=== PATIENT | female | born 1955 | race Caucasian/White ===

== ENCOUNTER → 2017-12-01 | Outpatient (CLI) | payer BC ==
--- NOTE | 2017-12-01 14:05 | MM ---
Reason for exam: screening (asymptomatic). Last mammogram was performed 3 years and 10 months ago. History: Patient is postmenopausal. Benign ultrasound-guided core biopsy of the right breast, November 18, 2000. Core biopsy of the right breast. Took hormonal contraceptives for 12 years. Physical Findings: A clinical breast exam by your physician is recommended on an annual basis and results should be correlated with mammographic findings. MG Screening Mammo w CAD Bilateral CC and MLO view(s) were taken. Prior study comparison: February 05, 2014, bilateral MG screening mammo w CAD. October 26, 2011, bilateral digital screening mammo w/CAD. There are scattered fibroglandular densities. There is no discrete abnormality. ASSESSMENT: Negative, BI-RAD 1 RECOMMENDATION: Routine screening mammogram of both breasts in 1 year.
== END | disposition home or self-care (01) ==
LOC: RADMAMWWP 10:34
PROVIDERS: ATTEND Internal Medicine
DX: Z12.31 Encounter for screening mammogram for malignant neoplasm of breast (principal)
CPT/HCPCS: 77067

== ENCOUNTER → 2018-07-12 | Outpatient (CLI) | payer BC ==
[2018-07-12 13:22] LABS: Basophils # (A) 0.1 k/uL (0-0.2); Basophils % (A) 1 %; Eosinophils # (A) 0.4 k/uL (0-0.7); Eosinophils % (A) 4 %; HCT 45.3 % (34.0-46.0); Lymphocytes # (A) 2.7 k/uL (1.0-4.8); Lymphocytes % (A) 32 %; MCH 30.3 pg (25.0-35.0); MCV 91.9 fL (80.0-100.0); Mean Platelet Volume 7.9; Monocytes # (A) 0.4 k/uL (0-1.0); Monocytes % (A) 5 %; Neutrophils # (A) 4.6 k/uL (1.3-7.7); Neutrophils % (A) 55 %; Platelet Count 381 k/uL (150-450); RBC 4.93 m/uL (3.80-5.40); WBC 8.3 k/uL (3.8-10.6)
[2018-07-12 13:39] LABS: Anion Gap 11 mmol/L; Blood Urea Nitrogen 20 mg/dL (7-17); Carbon Dioxide 23 mmol/L (22-30); Chloride 104 mmol/L (98-107); Glucose 99 mg/dL (74-99); Potassium 4.7 mmol/L (3.5-5.1); Sodium 138 mmol/L (137-145)
== END | disposition home or self-care (01) ==
LOC: LABPAT 12:00
PROVIDERS: ATTEND Obstetrics & Gynecology
DX: Z01.812 Encounter for preprocedural laboratory examination (principal); Z01.818 Encounter for other preprocedural examination; E11.9 Type 2 diabetes mellitus without complications; I10 Essential (primary) hypertension; N81.3 Complete uterovaginal prolapse; N81.6 Rectocele
CPT/HCPCS: 36415; 80051; 82565; 82947; 84520; 85025; 87086; 93005

== ENCOUNTER 2018-07-20 05:36 | Observation (INO) | payer BC ==
[2018-07-12 13:44] VITALS: BMI 32.3
[~2018-07-20 05:36] MED LIST: ceFAZolin IN SWFI 2 GM/20 ML SYRINGE IVP ONE
[2018-07-20] MEDS ORDERED: ONDANSETRON 4 MG/2 ML VIAL IVP ONE ×2 (06:00→12:33)
[2018-07-20] MEDS ORDERED: LIDOCAINE 1% 20 ML VIAL (10MG/ML) FOR IV START INTRADERMA PRN (06:00)
[2018-07-20] MEDS ORDERED: fentaNYL (PF) 50 MCG/ML 2 ML AMP IV PRN (06:00)
[2018-07-20] MEDS ORDERED: MIDAZOLAM 2 MG/2 ML VIAL IV PRN (06:00)
[2018-07-20] MEDS: LACTATED RINGERS 1,000 ML IV SCH ×3 (06:42→22:51)
[2018-07-20 06:45] LABS: Glucose,Whole Blood 131 mg/dL (75-99)
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
[2018-07-20] MEDS: DEXAMETHASONE SOD PHOSPHATE 10 MG/ML 1 ML VIAL IV ONE ×2 (06:55→13:31)
[2018-07-20] MEDS ORDERED: ceFAZolin 1,000 MG VIAL IRRIGATION ONE ×2 (07:49→09:15)
[2018-07-20] MEDS ORDERED: VASOPRESSIN 20 UNIT/ML 1 ML VIAL SQ ONE ×2 (07:50→08:35)
[2018-07-20] MEDS ORDERED: BACITRACIN 500 UNIT/GM OINT 28.4 GM TUBE TOPICAL ONE ×2 (07:52→09:36)
[2018-07-20] MEDS ORDERED: MIDAZOLAM 2 MG/2 ML VIAL ONE (08:07)
[2018-07-20] MEDS ORDERED: fentaNYL (PF) 50 MCG/ML 2 ML AMP ONE (08:07)
[2018-07-20] MEDS ORDERED: MORPHINE SULFATE (PF) 0.3 MG/0.3 ML SYR ONE (08:07)
[2018-07-20] MEDS ORDERED: PROPOFOL 10 MG/ML 20 ML VIAL IV ONE (08:07)
[2018-07-20] MEDS ORDERED: LIDOCAINE 1% INJ 10MG/ML (20 ML MDV) ONE (08:07)
[2018-07-20] MEDS ORDERED: ePHEDrine SULFATE/0.9% NACL/PF 50 MG/5 ML SYRINGE IV ONE (08:07)
[2018-07-20] MEDS ORDERED: LACTATED RINGERS 1,000 ML IV ONE (08:51)
[2018-07-20] MEDS ORDERED: KETOROLAC 30 MG/ML 1 ML VIAL IVP PRN ×2 (08:55→10:48)
[2018-07-20] MEDS ORDERED: NALBUPHINE 10 MG/ML VIAL (10ML MDV) IV PRN (08:55)
[2018-07-20] MEDS ORDERED: diphenhydrAMINE 50 MG/ML 1 ML VIAL IVP PRN (08:55)
[2018-07-20] MEDS ORDERED: NALOXONE 0.4 MG/ML 1 ML VIAL IV PRN (08:55)
[2018-07-20] MEDS ORDERED: HYDROmorphone 1 MG/ML 1 ML SYRINGE IVP PRN (08:55)
--- NOTE | 2018-07-20 10:33 | P.OP ---
Date of Procedure: 07/20/18 Preoperative Diagnosis: Genetic cystocele, rectocele, urinary incontinence. Postoperative Diagnosis: Same, normal-appearing ovaries bilaterally. Procedure(s) Performed: Vaginal hysterectomy, anterior and posterior colporrhaphy's. Anesthesia: LOPEZA Surgeon: Noelle Barajas Forklift Technician #1: Gladys Whitaker Estimated Blood Loss (ml): 100 IV fluids (ml): 1,400 Urine output (ml): 350 Pathology: none sent Condition: stable Disposition: PACU Description of Procedure: Patient is brought to the operating suite where a general anesthetic is administered. Spinal with Duramorph is also given. The appropriate timeout is performed to assure proper patient and procedural identification. Antibiotics are given. Patient is placed in the dorsal lithotomy position, perineal body and lower abdomen are prepped and draped in usual sterile fashion. Weighted speculum was placed into the vagina. Anterior lip of the cervix is grasped with a double-tooth tenaculum. Cervix is injected circumferentially with a dilute Pitressin solution. Bladder is drained for approximately 200 mL of clear yellow urine. Scalpel is used to incise the mucosa circumferentially with a V positioning at 6:00. Scalpel is used to push the mucosa back from the underlying fascial plane. Peritoneum is entered at 6:00 in this is suture tied and held with 2-0 Vicryl. Weighted speculum was then placed into the vagina. At all times the mucosa is swept well from the operative field to avoid bladder and/or ureteral injury. The right uterosacral cardinal ligament is identified, clamped cut and suture ligated. The suture is held with a hemostat laterally. The same procedure is carried out on the opposite uterosacral cardinal ligament complex. Uterine vasculature is identified and skeletonized, it is clamped cut and suture ligated. 2 additional pedicles are taken superior to the vessels. The anterior peritoneum is entered. Moni clamps are used across the final pedicles, the uterus and cervix are removed and sent to pathology. The pedicles are suture tied with 0 Vicryl, flashed, and retied for excellent hemostasis. A sponge is used to Yaz the ovaries, baby are atrophic and are left in situ per the patient's wishes. Hemostasis is excellent. The speculum is then changed to the shallow billed speculum. The previously placed 2-0 Vicryl suture is brought around in a pursestring fashion the peritoneum is closed. The uterosacral cardinal ligaments are then brought across to incorporate the opposite ligament as well as vaginal mucosa. 2 additional [id number] sutures of 0 Vicryl used on the vaginal cough for final closure. Trying regular portion of tissue is removed from the perineal body. The posterior vaginal mucosa is injected with the same dilute Pitressin. The mucosa is opened with a Metzenbaum scissors. The edges of the tissue are held in a fanlike fashion with Allis clamps. A sponge rolled finger is used to separate the underlying fascia from the overlying mucosa. 2-0 Vicryl sutures used in an interrupted fashion to bring the fascial edges together thereby completely reducing the rectocele. The redundant tissue is trimmed with Metzenbaum scissors. 2-0 Vicryl is used in a running fashion to repair the mucosal edges with an episiotomy-like closure at 6:00. Again hemostasis is excellent. Cystocele is then started. Metzenbaum scissors are used in the midline the roof of the vagina to undermine and open the vaginal mucosa to approximate 1.5 cm from the urethra. Sponge rolled finger is used to separate the mucosa from the underlying fascial plane. 2-0 Vicryl sutures are used to bring the fascial edges together. At this time Dr. Arteaga performed his autologous fascia pubovaginal sling procedure. Please see separately dictated notes. Cystoscopy is also performed in this is within normal limits. When he is completed. 2-0 Vicryl sutures used in a running fashion to close the vaginal mucosa. The vagina is packed with one-inch iodophor gauze. Wilson catheter is noted to be draining clear urine. All sponge needle and enhancement counts are correct at the end of our procedure. Patient is brought back to recovery room in very good condition with stable vital signs including a pulse of 75, blood pressure 105/53, respirations 12.
[2018-07-20] MEDS ORDERED: ONDANSETRON 4 MG/2 ML VIAL IVP PRN (10:46)
[2018-07-20] MEDS ORDERED: DEXTROSE 5%-0.45% NACL 1,000 ML IV SCH (11:00)
[2018-07-20] MEDS ORDERED: ceFAZolin 1,000 MG in DEXTROSE/WATER 1 50ML.BAG IVPB STA (11:03)
[2018-07-20 11:19] LABS: Glucose,Whole Blood 164 mg/dL (75-99)
[2018-07-20] MEDS ORDERED: ALBUTEROL NEBULIZED 2.5 MG/3 ML INHALATION PRN (13:05)
--- NOTE | 2018-07-20 14:18 | P.OP ---
Date of Procedure: 07/20/18 Preoperative Diagnosis: Mixed Urinary Incontinence Postoperative Diagnosis: Same Procedure(s) Performed: Pubovaginal Sling Anesthesia: spinal Surgeon: Andrea Campos Roll Builder #1: Noelle Barajas Estimated Blood Loss (ml): 100 IV fluids (ml): 1,400 Pathology: none sent Condition: stable Disposition: PACU Indications for Procedure: The patient is a 62-year-old white female with a several year history of mixed urinary incontinence, which requires the use of 4-5 pads daily. She states that she coughs hardly at times, resulting in significant stress urinary incontinence. She underwent urodynamic testing, revealing normal bladder capacity with no uninhibited contractions. Stress incontinence was demonstrated with Valsalva, and the leak point pressure was approximately 100 cm water. Mild urethral hypermobility was noted, all of which was consistent with the stress component of the incontinence being classified as type 2-3. Alternative treatment options were reviewed. She was advised that her best treatment option consisted of surgery. Surgical approaches include a retropubic urethropexy or a sling, either using autologous fascia or a synthetic sling. The pros and cons of each approach were reviewed, and she has elected to undergo a pubovaginal sling with autologous fascia. Operative Findings: No anatomic abnormalities noted, other than evidence of pelvic prolapse. Description of Procedure: I entered the operating room as Dr. Barajas completed the vaginal hysterectomy and rectocele repair. The patient was positioned in the dorsolithotomy position. Her condition was stable. The abdomen had been previously prepped and draped. The scalpel was used to make a Pfannenstiel incision. The Bovie electrocautery was used to incise the subcutaneous fat and Gómez's fascia, exposing the anterior rectus fascia. After clearing the fat off of the fascia, an 8 x 2 cm strip of fascia was excised. A Prolene suture was placed through each end of the fascia. The fascial defect was then closed using 0 Vicryl suture in a running fashion. Through the anterior vaginal incision, the endopelvic fascia was perforated bilaterally, and the bladder was swept away from the underside of the pubis via digital dissection. Stamey needles were then passed through the lateral aspect of the Pfannenstiel incision. The needles were advanced through the fascia immediately above the pubis, and the needle tips were guided digitally through the space of Retzius, down through the vaginal incision. The ends of the Prolene suture were then passed through the eyelet of the Stamey needles, thus pulling the suture ends to the Pfannenstiel incision. The mid-portion of the graft was secured to the periurethral tissue using 3-0 Vicryl suture. The ends of the Prolene sutures were then tied over the anterior rectus fascia, without tension. Cystoscopy was performed. The 30 lens was used to introduce the 17-[place] start cystoscopic sheath through the urethra and into the bladder under direct vision. Both ureteral orifices were of normal anatomic location and configuration, and clear urine effluxed from both. No tumors or foreign bodies were seen. There was no evidence of bladder or urethral trauma. Dr. Barajas proceeded to complete the cystocele repair and placed vaginal packing. The Pfannenstiel incision was irrigated with antibiotic solution. Gómez's fascia was closed over the Prolene suture ends using 3-0 Vicryl suture in a running fashion. The skin was closed using lilia. A sterile gauze dressing was applied over the incision. The Wilson catheter was connected to gravity drainage. All sponge and needle counts were correct. The patient tolerated the procedure well was taken to the recovery room in stable condition.
[2018-07-20] MEDS ORDERED: ceFAZolin 1,000 MG in DEXTROSE/WATER 1 50ML.BAG IVPB ONE (16:00)
[2018-07-20 18:26] LABS: Glucose,Whole Blood 127 mg/dL (75-99)
[2018-07-20] MEDS ORDERED: MECLIZINE 25 MG TAB PO PRN (18:46)
[2018-07-20 20:57] LABS: Glucose,Whole Blood 127 mg/dL (75-99)
[2018-07-20] MEDS ORDERED: metFORMIN 500 MG TAB PO SCH (21:00)
[2018-07-20] MEDS ORDERED: ATORVASTATIN 10 MG TAB PO SCH (21:00)
[2018-07-21 07:35] LABS: Glucose,Whole Blood 124 mg/dL (75-99)
[2018-07-21] MEDS ORDERED: LOSARTAN 50 MG TAB PO SCH (09:00)
[2018-07-21] MEDS ORDERED: FAMOTIDINE 20 MG TAB PO SCH (09:00)
--- NOTE | 2018-07-21 10:32 | P.DS ---
Providers Date of admission: 07/20/18 21:53 Expected date of discharge: 07/21/18 Attending physician: Noelle Barajas Primary care physician: [facility] Course: This is a 62-year-old white female who presented with a history of urinary incontinence and increasing perineal bulge. Evaluation in the office was consistent with uterine mixed urinary incontinence, cystocele, rectocele and uterine prolapse. After thorough consultation patient elected to proceed with surgical repair, declining option of pessary. Patient saw Dr. Arteaga for evaluation, and has decision was to proceed with an SNOW is grasped retropubic urethropexy. Please see both dictated history and physical examinations for details. Patient underwent a vaginal hysterectomy, anterior repair, posterior repair, autologous graft retropubic urethropexy and cystoscopy. She did well intraoperatively. The ovaries were evaluated, noted to be normal and therefore left in situ per her wishes. The vagina was packed with iodoform gauze and Wilson catheter placed. Please see to separately dictated operative notes for details. This morning the patient is doing well. Wilson catheter and vaginal packing had been removed. There is only scant vaginal bleeding. Patient has yet to void, but has increased her oral fluids. She is tolerating regular diet. She has showered. Vital signs are stable and she has remained afebrile. She is judged to be in very good condition for discharge home, pending successful void and measurement of postvoid residual. I am therefore discharging the patient home later today. She will follow-up in the office with me in 2 weeks, with Dr. Arteaga in 1 week. I have reminded her no heavy lifting, no intercourse tampons or douching. She will use over-the -counter Advil or Aleve as needed for pain. I've asked her to call me with any fevers shakes or chills, foul smelling or bloody vaginal drainage, with any pain not alleviated by [id number] products with any issues voiding, or indeed with any concerns whatsoever. Questions have been answered and I believe she understands our discussion and her limitations at this time. She will call with any problems or concerns. Pathology report on the uterine specimen at this time is pending. Patient Condition at Discharge: Good Plan - Discharge Summary Discharge Rx Participant: No New Discharge Prescriptions: No Action Tolterodine Tartrate [Detrol LA] 4 mg PO HS Ranitidine HCl 300 mg PO QAM Losartan Potassium 50 mg PO QAM Zinc 50 mg PO BID Calcium 600 + Vit D3 800 1 tab PO HS Albuterol Sulfate [Proair Hfa] 1 - 2 puff INHALATION RT-QID PRN PRN Reason: Shortness Of Breath Multivitamin with Iron [Multivitamins with Iron] 1 tab PO DAILY metFORMIN HCL [metFORMIN HCL ER] 500 mg PO HS Ubidecarenone [Co Q-10] 100 mg PO DAILY rOPINIRole HCL 1 mg PO HS Lovastatin [Mevacor] 10 mg PO HS Discharge Medication List Albuterol Sulfate [Proair Hfa] 1 - 2 puff INHALATION RT-QID PRN 07/12/18 [ History] Calcium 600 + Vit D3 800 1 tab PO HS 07/12/18 [History] Losartan Potassium 50 mg PO QAM 07/12/18 [History] Lovastatin [Mevacor] 10 mg PO HS 07/12/18 [History] Multivitamin with Iron [Multivitamins with Iron] 1 tab PO DAILY 07/12/18 [ History] Ranitidine HCl 300 mg PO QAM 07/12/18 [History] Tolterodine Tartrate [Detrol LA] 4 mg PO HS 07/12/18 [History] Ubidecarenone [Co Q-10] 100 mg PO DAILY 07/12/18 [History] Zinc 50 mg PO BID 07/12/18 [History] metFORMIN HCL [metFORMIN HCL ER] 500 mg PO HS 07/12/18 [History] rOPINIRole HCL 1 mg PO HS 07/12/18 [History] Follow up Appointment(s)/Referral(s): Noelle Barajas MD [STAFF PHYSICIAN] - 2 Weeks Discharge Disposition: HOME SELF-CARE
--- NOTE | 2018-07-21 11:21 | P.PN ---
Progress Note - Text Progress Note Date: 07/21/18 Postoperative day 1 status post vaginal hysterectomy , under general endotracheal anesthesia, and intrathecal morphine given for postoperative analgesia, patient doing well, there is no anesthesia related complications, Patient had no headache, vital signs stable , Assessment and plan= postop day 1 , doing well there is no anesthesia related complication.
[2018-07-21 12:06] VITALS: RESP 16
[2018-07-21 12:15] LABS: Glucose,Whole Blood 133 mg/dL (75-99)
[2018-07-21] MEDS ORDERED: IBUPROFEN 800 MG TAB PO PRN (14:37)
[2018-07-21 16:20] VITALS: BP 116/71; PULSE 62; TEMP 97.8
--- NOTE | 2018-07-21 16:54 | P.PN ---
Subjective Progress Note Date: 07/21/18 Principal diagnosis: POD #1, s/p pubovaginal sling. The patient was seen this morning shortly after her Wilson catheter was removed. She was feeling well and had virtually no discomfort. She had no complaints. Objective - Vital Signs Vital signs: Vital Signs Temp 97.8 F 07/21/18 15:47 Pulse 62 07/21/18 15:47 Resp 16 07/21/18 15:47 BP 116/71 07/21/18 15:47 Pulse Ox 99 07/21/18 15:47 Intake & Output 07/20/18 07/21/18 07/21/18 18:59 06:59 18:59 Intake Total 1750 1000 Output Total 650 650 650 Balance 1100 -650 350 Weight 89.358 kg Intake: IV 1750 Intake, IV Titration 400 Amount Lactated Ringers 1,000 ml 400 @ 100 mls/hr IV .Q10H JADON Rx#:[id number] Oral 600 Output: Urine 550 650 650 Straight 650 Estimated Blood Loss 100 Other: Voiding Method Indwelling Catheter Toilet - Constitutional General appearance: Present: cooperative, no acute distress - Gastrointestinal Gastrointestinal Comment(s): Soft, non-distended. Incision clean, dry, and intact. - Psychiatric Psychiatric: Present: A&O x's 3, appropriate affect - Labs Labs: Abnormal Lab Results - Last 24 Hours (Table) 07/20/18 07/20/18 07/21/18 Range/Units 18:23 20:54 07:34 POC Glucose (mg/dL) 127 H 127 H 124 H (75-99) mg/dL 07/21/18 Range/Units 12:14 POC Glucose (mg/dL) 133 H (75-99) mg/dL Assessment and Plan (1) Mixed urinary incontinence due to female genital prolapse Current Visit: No Status: Acute Code(s): N39.46 - MIXED INCONTINENCE; N81.9 - FEMALE GENITAL PROLAPSE, UNSPECIFIED SNOMED Code(s): 885177478 Plan: Mrs. Felder is unable to void, and was straight catheterized with a return of approximately 600 mL. If she continues to be unable to void, she will be taught to self catheterize. If she is unable to do so, she will be discharged home with an indwelling Wilson catheter. She has been advised that if she has retention which fails to resolve, loosening of the sling will be required.
[2018-07-21 17:28] LABS: Glucose,Whole Blood 154 mg/dL (75-99)
== END 2018-07-21 20:15 | disposition home or self-care (01) ==
LOC: OR 05:36 → 6PED 11:02 → OR 22:08
PROVIDERS: ADMIT Obstetrics & Gynecology; ATTEND Obstetrics & Gynecology
DX: N81.4 Uterovaginal prolapse, unspecified (principal); N39.46 Mixed incontinence; N36.41 Hypermobility of urethra; N80.0 Endometriosis of uterus; N84.0 Polyp of corpus uteri; K21.9 Gastro-esophageal reflux disease without esophagitis; J45.909 Unspecified asthma, uncomplicated; I10 Essential (primary) hypertension; E78.5 Hyperlipidemia, unspecified; E11.9 Type 2 diabetes mellitus without complications; Z79.84 Long term (current) use of oral hypoglycemic drugs; Z79.899 Other long term (current) drug therapy; Z88.5 Allergy status to narcotic agent; Z82.0 Family history of epilepsy and other diseases of the nervous system; Z80.42 Family history of malignant neoplasm of prostate
CPT/HCPCS: 57288; 57260; 58260; 86900; 86901; 86850; 88307; G0378 ×2; J2250; J1200; J1100; J2405; J0690 ×2; J2001; J2274; J3010; J1885; J2704

== ENCOUNTER 2018-07-28 10:02 | Day surgery (SDC) | payer BC ==
[2018-07-26 11:59] VITALS: BMI 32.3
[2018-07-28] MEDS ORDERED: LACTATED RINGERS 1,000 ML IV ONE ×3 (10:32→11:58)
[2018-07-28] MEDS ORDERED: LIDOCAINE 1% 20 ML VIAL (10MG/ML) FOR IV START INTRADERMA ONE (10:32)
[2018-07-28 10:49] LABS: Glucose,Whole Blood 114 mg/dL (75-99)
[2018-07-28] MEDS ORDERED: DEXAMETHASONE SOD PHOSPHATE 10 MG/ML 1 ML VIAL IV ONE (11:00)
[2018-07-28] MEDS ORDERED: ONDANSETRON 4 MG/2 ML VIAL IVP ONE (11:01)
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
[2018-07-28] MEDS ORDERED: KETAMINE 10 MG/ML 20 ML VIAL ONE (13:40)
[2018-07-28] MEDS ORDERED: fentaNYL (PF) 50 MCG/ML 2 ML AMP ONE (13:40)
[2018-07-28] MEDS ORDERED: PROPOFOL 10 MG/ML 20 ML VIAL IV ONE (13:40)
[2018-07-28] MEDS ORDERED: MIDAZOLAM 2 MG/2 ML VIAL ONE (13:40)
[2018-07-28] MEDS ORDERED: LIDOCAINE 1% INJ 10MG/ML (20 ML MDV) ONE (13:40)
[2018-07-28] MEDS ORDERED: BUPIVACAINE (PF) 0.25% 30 ML VIAL SQ ONE ×2 (13:56)
[2018-07-28 14:44] VITALS: TEMP 99.2
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
[2018-07-28 15:11] VITALS: RESP 16
[2018-07-28 15:36] VITALS: BP 132/74; PULSE 66
== END 2018-07-28 15:51 | disposition home or self-care (01) ==
LOC: OR 10:02
PROVIDERS: ATTEND Urology
DX: T83.89XA Other specified complication of genitourinary prosthetic devices, implants and grafts, initial encounter (principal); R33.8 Other retention of urine; J45.909 Unspecified asthma, uncomplicated; E11.9 Type 2 diabetes mellitus without complications; K21.9 Gastro-esophageal reflux disease without esophagitis; E78.5 Hyperlipidemia, unspecified; I10 Essential (primary) hypertension; N81.4 Uterovaginal prolapse, unspecified; Z79.84 Long term (current) use of oral hypoglycemic drugs; Z79.899 Other long term (current) drug therapy; Z88.5 Allergy status to narcotic agent
CPT/HCPCS: 57287; J2250; J1100; J2405; J2001; J3010; J2704; J0690

== ENCOUNTER 2018-08-09 09:36 | Day surgery (SDC) | payer BC ==
[2018-08-07 10:50] VITALS: BMI 32.8
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
[~2018-08-09 09:36] MED LIST changes: +DEXAMETHASONE SOD PHOSPHATE 10 MG/ML 1 ML VIAL IV ONE; +HYDROmorphone 0.5 MG/0.5 ML SYRINGE IVP PRN; +LIDOCAINE 1% 20 ML VIAL (10MG/ML) FOR IV START INTRADERMA PRN; +MIDAZOLAM 2 MG/2 ML VIAL IV PRN; +ONDANSETRON 4 MG/2 ML VIAL IVP ONE; +SCOPOLAMINE 1.5MG/72HR PATCH TRANSDERM ONE
[2018-08-09] MEDS ORDERED: HYDROmorphone 1 MG/ML 1 ML SYRINGE IVP PRN (10:54)
[2018-08-09 11:31] LABS: Glucose,Whole Blood 122 mg/dL (75-99)
[2018-08-09] MEDS: LACTATED RINGERS 1,000 ML IV SCH ×2 (11:37→13:27)
[2018-08-09 11:41] VITALS: TEMP 98.6
[2018-08-09] MEDS ORDERED: PHENYLEPHRINE-0.9% NACL SYG 1 MG/10 ML SYRINGE ONE (13:29)
[2018-08-09] MEDS ORDERED: LIDOCAINE 1% INJ 10MG/ML (20 ML MDV) ONE (13:29)
[2018-08-09] MEDS ORDERED: SUCCINYLCHOLINE CHLORIDE 100 MG/5 ML SYR IV ONE (13:29)
[2018-08-09] MEDS ORDERED: HYDROmorphone (PF) 1 MG/ML ONE (13:29)
[2018-08-09] MEDS ORDERED: ePHEDrine SULFATE/0.9% NACL/PF 50 MG/5 ML SYRINGE IV ONE (13:29)
[2018-08-09] MEDS ORDERED: MIDAZOLAM 2 MG/2 ML VIAL ONE (13:29)
[2018-08-09] MEDS ORDERED: fentaNYL (PF) 50 MCG/ML 2 ML AMP ONE (13:29)
[2018-08-09] MEDS ORDERED: PROPOFOL 10 MG/ML 20 ML VIAL IV ONE (13:29)
[2018-08-09] MEDS ORDERED: ceFAZolin 1,000 MG in SODIUM CHLORIDE 0.9% 1,000 ML IRRIGATION ONE (14:37)
[2018-08-09] MEDS ORDERED: LACTATED RINGERS 1,000 ML IV ONE (15:00)
[2018-08-09 16:02] VITALS: RESP 16
[2018-08-09 16:02] LABS: Glucose,Whole Blood 157 mg/dL (75-99)
[2018-08-09 17:56] VITALS: BP 107/63; PULSE 83
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
== END 2018-08-09 18:48 | disposition home or self-care (01) ==
LOC: OR 09:36
PROVIDERS: ATTEND Urology
DX: N36.41 Hypermobility of urethra (principal); R33.9 Retention of urine, unspecified; J45.909 Unspecified asthma, uncomplicated; E11.9 Type 2 diabetes mellitus without complications; K21.9 Gastro-esophageal reflux disease without esophagitis; E78.5 Hyperlipidemia, unspecified; I10 Essential (primary) hypertension; Z79.84 Long term (current) use of oral hypoglycemic drugs; Z79.899 Other long term (current) drug therapy; Z88.5 Allergy status to narcotic agent
CPT/HCPCS: 87070; 87205; 87075; 87077; 87186; 57287; J2250; J1100; J2405; J0690 ×2; J2001; J3010; J1170; J2370; J0330; J2704

== ENCOUNTER 2018-08-12 12:25 | Emergency (ER) | payer BC ==
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
[2018-08-12 16:02] VITALS: BP 158/70; PULSE 78; RESP 16; TEMP 97.8
== END 2018-08-12 15:45 | disposition home or self-care (01) ==
LOC: EC 12:25
DX: R32 Unspecified urinary incontinence (principal); R33.9 Retention of urine, unspecified; J45.909 Unspecified asthma, uncomplicated; E11.9 Type 2 diabetes mellitus without complications; K21.9 Gastro-esophageal reflux disease without esophagitis; E78.5 Hyperlipidemia, unspecified; I10 Essential (primary) hypertension; Z86.14 Personal history of Methicillin resistant Staphylococcus aureus infection; Z90.710 Acquired absence of both cervix and uterus; Z90.81 Acquired absence of spleen; Z96.652 Presence of left artificial knee joint; Z98.890 Other specified postprocedural states; Z79.84 Long term (current) use of oral hypoglycemic drugs; Z79.899 Other long term (current) drug therapy; Z88.5 Allergy status to narcotic agent
CPT/HCPCS: 99283

== ENCOUNTER 2018-12-26 17:22 | Inpatient (IN) | payer MEDICARE, BC ==
[2018-12-26] MEDS ORDERED: SODIUM CHLORIDE 0.9% 1,000 ML IV ONE (17:39)
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
[2018-12-26 18:00] LABS: Basophils # (A) 0.1 k/uL (0-0.2); Basophils % (A) 0 %; Eosinophils # (A) 0.2 k/uL (0-0.7); Eosinophils % (A) 1 %; HGB 15.1 gm/dL (11.4-16.0); Lymphocytes # (A) 1.5 k/uL (1.0-4.8); Lymphocytes % (A) 5 %; MCH 29.3 pg (25.0-35.0); MCHC 33.5 g/dL (31.0-37.0); MCV 87.6 fL (80.0-100.0); Mean Platelet Volume 7.1; Monocytes # (A) 1.2 k/uL (0-1.0); Monocytes % (A) 4 %; Neutrophils % (A) 90 %; Platelet Count 415 k/uL (150-450); RBC 5.14 m/uL (3.80-5.40); RDW 14.2 % (11.5-15.5); WBC 31.2 k/uL (3.8-10.6)
[2018-12-26 18:04] LABS: Appearance,Urine Cloudy (Clear); Bilirubin,Urine Negative (Negative); Blood,Urine Small (Negative); Color,Urine Yellow; Glucose,Urine (UA) 3+ (Negative); Ketones,Urine 1+ (Negative); Leukocyte Esterase,Urine Trace (Negative); Mucus,Urine Many /hpf; Nitrite,Urine Negative (Negative); PH, Urine 6.5 (5.0-8.0); Protein,Urine 2+ (Negative); RBC,Urine 21 /hpf (0-5); Specific Gravity,Urine 1.023 (1.001-1.035); Squamous Epithelial Cell,Urine 3 /hpf (0-4); Urobilinogen,Urine <2.0 mg/dL (<2.0); WBC,Urine 14 /hpf (0-5)
[2018-12-26 18:05] LABS: ALT 27 U/L (9-52); AST 43 U/L (14-36); Albumin 4.2 g/dL (3.5-5.0); Alkaline Phosphatase 172 U/L (38-126); Anion Gap 13 mmol/L; Blood Urea Nitrogen 20 mg/dL (7-17); Calcium 9.9 mg/dL (8.4-10.2); Carbon Dioxide 22 mmol/L (22-30); Chloride 100 mmol/L (98-107); Creatine Kinase 102 U/L (30-135); Glucose 155 mg/dL (74-99); Potassium 4.1 mmol/L (3.5-5.1); Sodium 135 mmol/L (137-145); Total Bilirubin 1.1 mg/dL (0.2-1.3); Total Protein 7.4 g/dL (6.3-8.2)
[2018-12-26 18:09] LABS: Partial Thromboplastin Time 29.4 sec (22.0-30.0); Prothrombin Time 10.8 sec (9.0-12.0)
[2018-12-26] MEDS ORDERED: SODIUM CHLORIDE 0.9% 1,000 ML IV STA (18:37)
--- NOTE | 2018-12-26 19:25 | CT ---
EXAMINATION: CT brain wo con DATE AND TIME: 12/26/2018 6:45 PM CLINICAL INDICATION: PHH; altered mental status TECHNIQUE: Standard departmental protocol.; 1172.4; COMPARISON: None. FINDINGS: The calvarium is intact. There is no intracranial hemorrhage. There is no intracranial mass or mass effect. No definite new intra-axial or extra-axial attenuation defect. All paranasal sinuses are nearly entirely opacified, which can correlate with the clinical diagnosis of pansinusitis. There is no associated paranasal sinus expansion or sclerosis. The right middle ear cavity is clear. There is minimal opacification within the left middle ear cavit y, a nonspecific finding. The mastoid sinus air cells are bilaterally clear. The orbits are unremarkable. IMPRESSION: 1. NO ACUTE CRANIAL/INTRACRANIAL PROCESS. 2. However, near-complete opacification of the paranasal sinuses. 3. Minimal opacification of the left middle ear cavity, of doubtful clinical significance.
--- NOTE | 2018-12-26 19:51 | XR ---
EXAMINATION: XR chest 2V DATE AND TIME: 12/26/2018 7:19 PM CLINICAL INDICATION: PHH; altered mental status TECHNIQUE: Departmental protocol COMPARISON: 11/30/2012 FINDINGS: The overlying prominent soft tissues are noted. Bilateral elevated hemidiaphragms, greater on the right, consistent with low lung inflation at the mo ment of x-ray exposure. There is evidence of a small pleural effusion on the right. There is evident bibasilar partial airlessness of the lower lobes. Basilar pneumonia cannot be clinic ally excluded. There are no abnormal gas collections. The cardiac silhouette is moderately enlarged, new since the prior study. The thoracic aorta is tortuous. This also appears new since the prior study. The skeletal structures and soft tissues are negative for acute findings. IMPRESSION: 1. Bibasilar partial airlessness with small right pleural effusion. 2. Cardiac silhouette moderately enlarged; tortuous aorta.
[2018-12-26] MEDS ORDERED: ONDANSETRON 4 MG/2 ML VIAL IVP STA (20:13)
[2018-12-26] MEDS ORDERED: MORPHINE SULFATE 4 MG/ML SYRINGE IV STA (20:13)
[2018-12-26 21:48] LABS: Total Protein,CSF 517 mg/dL (12-60)
[2018-12-26 21:50] LABS: CSF Tube Number 4
[2018-12-26 21:51] LABS: Appearance,CSF Cloudy; CSF Tube Volume 1
[2018-12-26 21:52] LABS: Nucleated Cells, CSF 2830 u/L (0-5); Red Blood Cell,CSF 500 u/L (0-10)
[2018-12-26 22:00] LABS: Red Blood Cell, CSF Crenated 0 %; Red Blood Cell, CSF Fresh 100 %
[2018-12-26] MEDS ORDERED: AMPICILLIN 2,000 MG in SODIUM CHLORIDE 0.9% 100 ML IVPB STA (22:09)
[2018-12-26] MEDS ORDERED: VANCOMYCIN IV PER PHARMACY 1 EACH MISC MISCELLANE PRN (22:09)
[2018-12-26] MEDS ORDERED: VANCOMYCIN 1,500 MG in SODIUM CHLORIDE 0.9% 250 ML IVPB STA (22:11)
[2018-12-26 22:12] LABS: Mononuclear WBC,CSF 8 %; Polynuclear WBC,CSF 92 %
[2018-12-26 22:14] LABS: Glucose,CSF 27 mg/dL (40-70)
[2018-12-26] MEDS ORDERED: MORPHINE SULFATE 4 MG/ML SYRINGE IV PRN (22:17)
[2018-12-26] MEDS ORDERED: ONDANSETRON 4 MG/2 ML VIAL IVP PRN (22:17)
[2018-12-26] MEDS ORDERED: NALOXONE 0.4 MG/ML 1 ML VIAL IV PRN (22:17)
[2018-12-26] MEDS: SODIUM CHLORIDE 0.9% 1,000 ML IV SCH (23:21)
[2018-12-26 23:49] VITALS: BMI 28.2
[2018-12-27] MEDS: AMPICILLIN 2,000 MG in SODIUM CHLORIDE 0.9% 100 ML IVPB SCH ×3 (02:07→10:04)
[2018-12-27 02:28] LABS: ABG Base Excess 1.4 mmol/L; ABG HCO3 25 mmol/L (21-25); ABG PCO2 34 mmHg (35-45); ABG PH 7.48 (7.35-7.45); ABG PO2 52 mmHg (83-108); ABG TCO2 26 mmol/L (19-24)
[2018-12-27] MEDS ORDERED: ACETAMINOPHEN SUPPOSITORY 650 MG SUPP RECTAL PRN (02:33)
[2018-12-27 04:24] LABS: Glucose,Whole Blood 153 mg/dL (75-99)
[2018-12-27 04:36] LABS: ABG Base Excess 0.9 mmol/L; ABG HCO3 25 mmol/L (21-25); ABG PCO2 36 mmHg (35-45); ABG PH 7.45 (7.35-7.45); ABG PO2 58 mmHg (83-108); ABG TCO2 26 mmol/L (19-24)
[2018-12-27] MEDS ORDERED: NALOXONE 0.4 MG/ML 1 ML VIAL IV PRN (04:58)
[2018-12-27] MEDS ORDERED: PROPOFOL 1,000 MG in EMPTY BAG 1 BAG IV SCH (05:15)
[2018-12-27 05:24] LABS: Anion Gap 10 mmol/L; Blood Urea Nitrogen 18 mg/dL (7-17); Calcium 9.5 mg/dL (8.4-10.2); Carbon Dioxide 24 mmol/L (22-30); Chloride 103 mmol/L (98-107); Glucose 154 mg/dL (74-99); Phosphorus 2.3 mg/dL (2.5-4.5); Sodium 137 mmol/L (137-145)
[2018-12-27 05:33] LABS: Potassium 3.6 mmol/L (3.5-5.1)
[2018-12-27 05:34] LABS: Basophils % (A) 0 %; Eosinophils % (A) 0 %; HGB 14.2 gm/dL (11.4-16.0); Lymphocytes # (A) 1.3 k/uL (1.0-4.8); Lymphocytes % (A) 5 %; MCH 29.3 pg (25.0-35.0); MCV 88.6 fL (80.0-100.0); Mean Platelet Volume 7.7; Monocytes # (A) 1.3 k/uL (0-1.0); Monocytes % (A) 5 %; Neutrophils # (A) 24.3 k/uL (1.3-7.7); Neutrophils % (A) 90 %; Platelet Count 425 k/uL (150-450); RBC 4.86 m/uL (3.80-5.40); RDW 14.3 % (11.5-15.5); WBC 27.1 k/uL (3.8-10.6)
--- NOTE | 2018-12-27 05:46 | XR ---
EXAM: XR Chest, 1 View CLINICAL HISTORY: ITS.REASON XR Reason: Tube placement TECHNIQUE: Frontal view of the chest. COMPARISON: Chest 12/26/18. FINDINGS: See Impression. IMPRESSION: Interval intubation with endotracheal tube tip located approximately 2. 4 cm above the hector. Interval placement of a transesophageal catheter with tip off the examination. Left pleural parenchymal disease is new with obscuration of the left hemidiaphragm from partial atelectasis, infiltrate or aspiration, depending on the clinical scenario. Again seen is some thickening along the right minor fissure. No pneumothorax.
[2018-12-27 05:57] LABS: ABG HCO3 27 mmol/L (21-25); ABG PCO2 54 mmHg (35-45); ABG PO2 279 mmHg (83-108); ABG TCO2 28 mmol/L (19-24)
[2018-12-27] MEDS ORDERED: VANCOMYCIN 1,500 MG in SODIUM CHLORIDE 0.9% 250 ML IVPB SCH (07:00)
[2018-12-27] MEDS ORDERED: PANTOPRAZOLE 40 MG TABLET PO SCH (07:30)
[2018-12-27] MEDS ORDERED: PROPOFOL 10 MG/ML 20 ML VIAL IV ONE (07:37)
[2018-12-27] MEDS ORDERED: MIDAZOLAM 1 MG/ML 5 ML VIAL ONE (07:37)
[2018-12-27] MEDS ORDERED: ROCURONIUM BROMIDE 10 MG/ML 10 ML VIAL IV ONE (07:37)
[2018-12-27] MEDS ORDERED: FLUTICASONE 110 MCG INHALER INHALATION SCH (08:00)
[2018-12-27] MEDS ORDERED: HEPARIN SODIUM,PORCINE 5,000 UNIT/ML 1 ML VIAL SQ SCH (08:00)
[2018-12-27] MEDS ORDERED: CISATRACURIUM 2 MG/ML 5 ML VIAL IV ONE (08:05)
[2018-12-27] MEDS: SODIUM CHLORIDE 0.9% 1,000 ML IV SCH (08:19)
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
[2018-12-27 08:39] LABS: ABG Base Excess -0.2 mmol/L; ABG HCO3 25 mmol/L (21-25); ABG Oxygen Saturation 98.1 % (94-97); ABG PCO2 44 mmHg (35-45); ABG PH 7.37 (7.35-7.45); ABG PO2 114 mmHg (83-108)
[2018-12-27] MEDS: IPRATROPIUM-ALBUTEROL 3 ML NEB INHALATION SCH ×2 (08:58→10:55)
[2018-12-27] MEDS ORDERED: LOSARTAN 50 MG TAB PO SCH (09:00)
[2018-12-27] MEDS ORDERED: metFORMIN 500 MG TAB PO SCH (09:00)
[2018-12-27] MEDS ORDERED: CHLORHEXIDINE GLUCONATE 15 ML CUP MUCOUS MEM SCH (09:00)
--- NOTE | 2018-12-27 09:30 | XR ---
EXAMINATION TYPE: XR chest 1V DATE OF EXAM: 12/27/2018 COMPARISON: 12/27/2018 INDICATION: Central line placement TECHNIQUE: Single semiupright frontal view of the chest is obtained. FINDINGS: The heart size is normal. The pulmonary vasculature is normal. Mild retrocardiac infiltrate may be present. The endotracheal tube tip remains above the hector. Nasogastric tube transverses the thorax tip withi n the abdomen the [id number]. There is placement of a left central venous catheter with the tip in the proximal right atrium. No pn eumothorax is evident. IMPRESSION: 1. No pneumothorax post left central venous catheter placement. Tip the catheter is within the right atrium.
[2018-12-27] MEDS ORDERED: PANTOPRAZOLE 40 MG/10 ML VIAL IVP SCH (09:45)
--- NOTE | 2018-12-27 09:47 | OP ---
OPERATIVE REPORT PROCEDURE: Left internal jugular triple lumen catheter. There was informed consent and universal timeout. The patient was placed in a dependent position appropriate for triple lumen catheter placement based on the vein to be cannulated. The patient's left neck was prepped and draped in sterile fashion. 1% Lidocaine was used to anesthetize the surrounding skin area. A triple lumen 9F Cordis catheter was introduced into the left internal jugular via the posterior approach. The catheter was threaded smoothly over the guide wire and appropriate blood return was obtained. Each lumen of the catheter was evacuated of air and flushed with sterile saline. Perfusion to the extremity distal to the point of catheter insertion was checked and found to be adequate. There was no immediate complication. There was good blood return from all 3 ports. The catheter was sutured in place. Sterile dressing was applied by the nurse. A chest x-ray will be ordered to check placement and rule out pneumothorax. Patient tolerated the procedure well. MMODL / IJN: [id number] /
[2018-12-27 10:06] LABS: Glucose,Whole Blood 131 mg/dL (75-99)
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
[2018-12-27] MEDS ORDERED: Potassium Replacement Protocol 1 EACH MISC MISCELLANE PRN (10:19)
--- NOTE | 2018-12-27 10:33 | ECHOF ---
Referral Reason:elevated trop MEASUREMENTS -------- HEIGHT: 165.1 cm WEIGHT: 74.8 kg BP: RVIDd: 3.5 cm (< 3.3) IVSd: 1.4 cm (0.6 - 1.1) LVIDd: 3.7 cm (3.9 - 5.3) LVPWd: 1.4 cm (0.6 - 1.1) IVSs: 1.5 cm LVIDs: 4.0 cm LVPWs: 1.1 cm LA Diam: 2.5 cm (2.7 - 3.8) MV EXCURSION: 11.339 mm (> 18.000) MV EF SLOPE: 51 mm/s (70 - 150) EPSS: 0.7 cm MV E Natan: 0.49 m/s MV DecT: 218 ms MV A Antan: 0.65 m/s MV E/A Ratio: 0.74 RAP: 5.00 mmHg RVSP: 14.52 mmHg FINDINGS -------- Sinus rhythm. This was a technically adequate study. The left ventricular size is normal. There is moderate concentric left ventricular hypertrophy. O verall left ventricular systolic function is normal with, an EF between 55 - 60 %. The right ventricle is normal in size. The left atrial size is normal. The right atrial size is normal. Not well seen. The aortic valve was not well visualized. Mild mitral annular calcification present. Mild mitral regurgitation is present. Mild tricuspid regurgitation present. There is no evidence of pulmonary hypertension. The right v entricular systolic pressure, as measured by Doppler, is 14.52mmHg. There is no pulmonic regurgitation present. The aortic root size is normal. IVC Not well visulized. There is no pericardial effusion. CONCLUSIONS -------- 1. The left ventricular size is normal. 2. There is moderate concentric left ventricular hypertrophy. 3. Overall left ventricular systolic function is normal with, an EF between 55 - 60 %. 4. The right ventricle is normal in size. 5. The left atrial size is normal. 6. The right atrial size is normal. 7. Interatrial Septum not well visulized. 8. The aortic valve was not well visualized. 9. Mild mitral annular calcification present. 10. Mild mitral regurgitation is present. 11. Mild tricuspid regurgitation present. 12. There is no evidence of pulmonary hypertension. 13. The right ventricular systolic pressure, as measured by Doppler, is 14.52mmHg. 14. There is no pulmonic regurgitation present. 15. The aortic root size is normal. 16. IVC Not well visulized. 17. There is no pericardial effusion. HEAD OF ADVERTISING: Brianna Lo RDCS
[2018-12-27] MEDS: POTASSIUM CHLORIDE 10 MEQ in WATER FOR INJECTION 1 100ML.BAG IVPB SCH ×2 (10:54→12:08)
--- NOTE | 2018-12-27 11:02 | HP ---
HISTORY AND PHYSICAL DATE OF ADMISSION: 12/26/2018 DATE OF SERVICE: 12/27/2018 PRESENTING COMPLAINT: Confusion. HISTORY OF PRESENTING COMPLAINT: This is a 63-year-old patient of Dr. Dario Andujar whose chronic stable medical conditions include diabetes, GERD, hyperlipidemia, hypertension, bladder incontinence. History is obtained by the son and daughter. Two days ago patient was having what appeared to be ear infection on the left side and she had gone to see her family doctor, Dr. Dario Andujar's office. She was given antibiotic in form of Augmentin. That evening the son tried to reach her, but did not get the response. He again called her the next day that is yesterday did not get response, the family decided to go in the house. Patient was found on the bed. She had vomited and urine and had some bruising, slightly confused, able to communicate. The patient was brought down to the ER. The patient underwent a lumbar puncture, found to have 2830 nucleated cells, 27 glucose and CSF protein of 517. The patient did receive IV ceftriaxone, ampicillin, vancomycin in the ER. Admitted to the medical floor. The patient had remained confused, became more agitated early hours of the morning. I was called. I ordered a sitter. Did not want to give Ativan as to make her more confused. Subsequently, A-team was called and Dr. Terrell was contacted. The patient did undergo blood gases, found the patient to be hypoxic. The patient was moved to the ICU and had to be intubated. I spoke to the son and daughter. The patient has chronic contracture of the right foot and she does wear a special shoe and apparently has neuropathy of the left leg. REVIEW OF SYSTEMS: See above. Patient herself is intubated. PAST MEDICAL HISTORY: Asthma, diabetes mellitus type 2, GERD, hyperlipidemia, hypertension, bladder incontinence, sinus congestion. PAST SURGICAL HISTORY: , hernia repair, hysterectomy, tonsillectomy, history of splenectomy, right 4th and 5th toe amputated, left knee replacement, July 2018 had a bladder sling adjustment. SOCIAL HISTORY: The patient is a . No smoking. Alcohol occasional. Lives by herself. FAMILY HISTORY: Family history of prostate cancer. HOME MEDICATIONS: 1. Ropinirole 1 mg q.h.s. 2. Metformin 500 mg q.h.s. 3. Zinc 50 mg b.i.d. 4. COQ10, 100 mg p.o. daily. 5. VESIcare 10 mg q.h.s. 6. Protonix 40 mg p.o. daily. 7. Multivitamin 1 tablet p.o. daily. 8. Asmanex 2 puffs b.i.d. 9. Myrbetriq 50 mg p.o. daily. 10.Mevacor 10 mg q.h.s. 11.Losartan 50 mg p.o. daily. 12.Augmentin 875 one tablet b.i.d. 13.ProAir 1 or 2 puffs q.i.d. p.r.n. ALLERGIES: CODEINE, causing nausea and vomiting. PHYSICAL EXAMINATION: On examination, vital signs on presentation: Temperature 98.1, pulse 92, respirations 18, blood pressure 152/98, pulse ox 92% on room air. GENERAL APPEARANCE: Lying in bed, intubated. EYES: Pupils equal. Conjunctivae normal. HENT: External appearance of nose and ears normal. Oral cavity, endotracheal tube placed. NECK: JVD unable to assess. Mass not palpable. RESPIRATORY: Effort normal. LUNGS: Diminished breath sounds. CARDIOVASCULAR: First and second sounds normal. No edema. ABDOMEN: Slightly distended, soft, nontender. Liver and spleen not palpable. Bowel sounds are sluggish. LYMPHATICS: No lymph node palpable in the neck or axillae. PSYCHIATRY: Unable to assess, patient intubated. NEUROLOGICAL: Pupils are equal. No edema. The patient does respond to pain. EXTREMITIES: Patient has got a chronically contracted right foot with missing 2 lateral toes. Plantar on the left side is equivocal. INVESTIGATIONS: White count 31.2, hemoglobin 15.1. Potassium 4.1, BUN 20, creatinine 0.31. Troponin 0.181, 0.169. CSF shows a RBC of 500, total nucleated cells 2830, glucose 27, total protein 517. Blood gas showed a pH of 7.48, pO2 of 52, pCO2 of 26. Chest x-ray film personally reviewed by me shows an penetrated film, some decreased air entry on the bases. CT scan of the brain shows near-complete opacification of the paranasal sinuses and minimal opacification of left middle ear cavity. EKG tracing personally reviewed by me shows normal sinus rhythm, nonspecific ST-segment changes. ASSESSMENT: 1. Acute bacterial meningitis with Gram stain showing gram-positive cocci in pairs, likely precipitated by left-sided otitis media and sinusitis. 2. Moderate persistent asthma. 3. Acute hypoxic respiratory failure in a patient requiring ventilator support. 4. Acute metabolic encephalopathy from underlying meningitis. 5. Diabetes mellitus type 2, on oral hypoglycemic. 6. Essential hypertension. 7. Hyperlipidemia. 8. Gastroesophageal reflux disease. 9. Chronic urinary incontinence. 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 PLAN: The patient is currently on IV vancomycin, propofol mcg, ceftriaxone, ampicillin. I discussed with Dr. Mccollum from ID. The patient is otherwise stable. Steroids are not to be given as it might worsen things at the present time. Dr. Terrell saw the patient from Critical Care. We do not have neurology services here nor neurosurgery if indicated. Hence for higher level of care and the patient being critical, patient will be moved to [facility] in [place]. Preparations are being made for the same. Care was discussed with the patient's son and daughter at the bedside and also Dr. Mccollum. MMODL / IJN: [id number] /
[2018-12-27] MEDS ORDERED: INSULIN ASPART (NovoLOG) 100 UNIT/ML VIAL SQ SCH (12:00)
[2018-12-27 12:15] VITALS: TEMP 98
--- NOTE | 2018-12-27 12:32 | PCN ---
PROCEDURE NOTE LEFT ARTERIAL LINE PLACEMENT: Indications: Hemodynamic monitoring. A time-out was completed verifying correct patient, procedure, site, positioning, and implant(s) or special equipment if applicable. Nolan's test was performed to ensure adequate perfusion. The patient's left was prepped and draped in sterile fashion. 1% Lidocaine was used to anesthetize the area. An 18G Arrow arterial line was introduced into the radial/femoral artery. The catheter was threaded over the guide wire and the needle was removed with appropriate pulsatile blood return. Blood loss was minimal. The catheter was then sutured in place to the skin and a sterile dressing applied. Perfusion to the extremity distal to the point of catheter insertion was checked and found to be adequate. No immediate complications. Patient tolerated procedure well, good waveform and blood return were noted, line was flushed, sutured in place. Sterile dressing was applied. MMODL / IJN: [id number] /
[2018-12-27 13:20] VITALS: BP 134/70; RESP 24
[2018-12-27 14:27] VITALS: PULSE 83
[2018-12-27] MEDS ORDERED: ATORVASTATIN 10 MG TAB PO SCH (21:00)
[2018-12-28] MEDS ORDERED: VANCOMYCIN TROUGH DUE 1 EACH MISC MISCELLANE ONE (06:00)
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
--- NOTE | 2018-12-29 11:55 | CDI ---
Documentation Clarification Form Date: 12/30/18 From: Candis Pino Phone: If you have question, contact Carin Brady at [phone] M-F 8:30 am to 6pm Admit Date: 12/26/2018 10:17:00 PM Patient Name: Tiffany Felder Visit Number: [id number] Discharge Date: 12/27/2018 3:02:00 PM ATTENTION: The Clinical Documentation Specialists (CDI) and [facility] Coding Staff appreciate your assistance in clarifying documentation. Please respond to the clarification below the line at the bottom and electronically sign. The CDI & [facility] Coding staff will review the response and follow-up if needed. Please note: Queries are made part of the Legal Health Record. If you have any questions, please contact the author of this message via ITS. Dr. Beka Lambert The patient presented with altered mental status. Clinical impression per the ED is: bacterial meningitis, altered mental status, sepsis. The patient developed acute hypoxic respiratory failure, was intubated and then transferred to [facility] for neurology evaluation. Per the 12/27 consult gram stain showing a gram-positive cocci likely presenting strep pneumo meningitis. (1) Bacterial meningitis (2) Sepsis. History/Risk Factors: Clinical Indicators: Fever spiked to 99.9, elevated WBC of 31.2 Blood culture and CSF culture is positive for streptococcus pneumoniae Antibiotics: Rocephin, Vancomycin, Amppicillin In your professional opinion, please clarify if these findings signify one of the following conditions: Sepsis ruled out Sepsis rule in Other, please specify Unable to determine sepsis , POA MTDD
== END 2018-12-27 15:02 | disposition short-term general hospital (02) | DRG 871 ==
LOC: EC 17:22 → 3SCARD 22:17 → 2SICU 12-27 04:32
PROVIDERS: ADMIT Hospitalist; ATTEND Hospitalist
PROC: 009U3ZX Drainage of Spinal Canal, Percutaneous Approach, Diagnostic (ICD-10-PCS; principal; 2018-12-26)
PROC: 4A133J1 Monitoring of Arterial Pulse, Peripheral, Percutaneous Approach (ICD-10-PCS; 2018-12-26)
PROC: 03HY32Z Insertion of Monitoring Device into Upper Artery, Percutaneous Approach (ICD-10-PCS; 2018-12-26)
PROC: 4A133B1 Monitoring of Arterial Pressure, Peripheral, Percutaneous Approach (ICD-10-PCS; 2018-12-26)
PROC: 5A1935Z Respiratory Ventilation, Less than 24 Consecutive Hours (ICD-10-PCS; 2018-12-26)
PROC: 0BH17EZ Insertion of Endotracheal Airway into Trachea, Via Natural or Artificial Opening (ICD-10-PCS; 2018-12-26)
PROC: 02H633Z Insertion of Infusion Device into Right Atrium, Percutaneous Approach (ICD-10-PCS; 2018-12-27)
DX: A40.3 Sepsis due to Streptococcus pneumoniae (principal); G93.41 Metabolic encephalopathy; G00.1 Pneumococcal meningitis; J96.01 Acute respiratory failure with hypoxia; H66.92 Otitis media, unspecified, left ear; K21.9 Gastro-esophageal reflux disease without esophagitis; I10 Essential (primary) hypertension; E78.5 Hyperlipidemia, unspecified; R32 Unspecified urinary incontinence; E11.41 Type 2 diabetes mellitus with diabetic mononeuropathy; E11.65 Type 2 diabetes mellitus with hyperglycemia; E11.40 Type 2 diabetes mellitus with diabetic neuropathy, unspecified; Z96.652 Presence of left artificial knee joint; M24.574 Contracture, right foot; J45.40 Moderate persistent asthma, uncomplicated; Z90.710 Acquired absence of both cervix and uterus; Z79.84 Long term (current) use of oral hypoglycemic drugs; Z79.899 Other long term (current) drug therapy; Z88.5 Allergy status to narcotic agent; Z80.42 Family history of malignant neoplasm of prostate; Z89.421 Acquired absence of other right toe(s); Z90.81 Acquired absence of spleen; Z89.429 Acquired absence of other toe(s), unspecified side; Z82.0 Family history of epilepsy and other diseases of the nervous system
CPT/HCPCS: 36415; 36600; 51702; 62270; 70450; 71045; 71046; 80048; 80053; 81001; 82550; 82805; 82945; 83605; 83735; 84100; 84157; 84484; 85025; 85610; 85730; 87040; 87070; 87077; 87186; 87205; 87529; 89050; 93005; 93306; 94002; 94640; 94760; 96361; 96365; 96367; 96375; 96376; 99291

== ENCOUNTER → 2019-10-29 | Outpatient (CLI) | payer MEDICARE ==
--- NOTE | 2019-10-30 10:20 | MM ---
Reason for exam: screening (asymptomatic). Last mammogram was performed 1 year and 11 months ago. History: Patient is postmenopausal. Benign ultrasound-guided core biopsy of the right breast, November 18, 2000. Core biopsy of the right breast. Took hormonal contraceptives for 12 years. Physical Findings: A clinical breast exam by your physician is recommended on an annual basis and results should be correlated with mammographic findings. MG 3D Screening Mammo W/Cad Bilateral CC and MLO view(s) were taken. Prior study comparison: December 01, 2017, bilateral MG screening mammo w CAD. February 05, 2014, bilateral MG screening mammo w CAD. There are scattered fibroglandular densities. Finding: There are typically benign vascular calcifications. No suspicious abnormality. No significant changes in finding since December 01, 2017 and February 05, 2014. ASSESSMENT: Benign, BI-RAD 2 RECOMMENDATION: Routine screening mammogram of both breasts in 1 year.
== END | disposition home or self-care (01) ==
LOC: RADMAMWWP 12:25
PROVIDERS: ATTEND Internal Medicine
DX: Z12.31 Encounter for screening mammogram for malignant neoplasm of breast (principal)
CPT/HCPCS: 77063; 77067

== ENCOUNTER 2019-10-31 08:37 | Emergency (ER) | payer MEDICARE ==
[2019-10-31 08:42] VITALS: TEMP 98
[2019-10-31] MEDS ORDERED: ASPIRIN 81 MG PO STA (09:04)
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
--- NOTE | 2019-10-31 09:25 | XR ---
EXAMINATION TYPE: XR chest 2V DATE OF EXAM: 10/31/2019 COMPARISON: 12/27/2018 HISTORY: Shortness of breath TECHNIQUE: Frontal and lateral views of the chest are obtained. FINDINGS: Scattered senescent parenchymal changes noted. Hyperinflation compatible with COPD. No evidence for infiltrate. No evidence for atelectasis. Heart size is stable. Mediastinal structures are stable and grossly unremarkable. No evidence for hilar prominence. Degenerative changes dorsal spine. IMPRESSION: 1. No evidence for acute pulmonary disease.
[2019-10-31 09:30] LABS: Basophils # (A) 0.1 k/uL (0-0.2); Basophils % (A) 1 %; Eosinophils # (A) 0.1 k/uL (0-0.7); Eosinophils % (A) 2 %; HCT 43.6 % (34.0-46.0); HGB 14.1 gm/dL (11.4-16.0); Lymphocytes # (A) 1.6 k/uL (1.0-4.8); Lymphocytes % (A) 26 %; MCH 29.3 pg (25.0-35.0); MCHC 32.4 g/dL (31.0-37.0); MCV 90.4 fL (80.0-100.0); Mean Platelet Volume 7.8; Monocytes # (A) 0.4 k/uL (0-1.0); Monocytes % (A) 6 %; Neutrophils # (A) 3.9 k/uL (1.3-7.7); Neutrophils % (A) 63 %; Platelet Count 381 k/uL (150-450); RBC 4.82 m/uL (3.80-5.40); RDW 13.2 % (11.5-15.5); WBC 6.3 k/uL (3.8-10.6)
[2019-10-31 09:43] LABS: INR 0.9 (<1.2); Partial Thromboplastin Time 26.2 sec (22.0-30.0); Prothrombin Time 9.8 sec (9.0-12.0)
[2019-10-31 09:46] LABS: ALT 18 U/L (4-34); AST 24 U/L (14-36); African American GFR (CKD) >90 (>60 ml/min/1.73 sqM); Albumin 4.3 g/dL (3.5-5.0); Alkaline Phosphatase 143 U/L (38-126); Anion Gap 11 mmol/L; Blood Urea Nitrogen 15 mg/dL (7-17); Calcium 9.8 mg/dL (8.4-10.2); Carbon Dioxide 23 mmol/L (22-30); Chloride 103 mmol/L (98-107); Glucose 145 mg/dL (74-99); Magnesium 1.9 mg/dL (1.6-2.3); Non-African American GFR(CKD) >90 (>60 ml/min/1.73 sqM); Potassium 4.4 mmol/L (3.5-5.1); Sodium 137 mmol/L (137-145); Total Bilirubin 0.4 mg/dL (0.2-1.3); Total Protein 7.1 g/dL (6.3-8.2)
[2019-10-31 13:24] VITALS: BP 132/70; PULSE 72; RESP 18
== END 2019-10-31 13:23 | disposition home or self-care (01) ==
LOC: EC 08:37
DX: R07.89 Other chest pain (principal); J45.909 Unspecified asthma, uncomplicated; E11.9 Type 2 diabetes mellitus without complications; K21.9 Gastro-esophageal reflux disease without esophagitis; E78.5 Hyperlipidemia, unspecified; I10 Essential (primary) hypertension; Z88.5 Allergy status to narcotic agent; Z79.51 Long term (current) use of inhaled steroids; Z79.84 Long term (current) use of oral hypoglycemic drugs; Z79.899 Other long term (current) drug therapy; Z86.14 Personal history of Methicillin resistant Staphylococcus aureus infection; Z87.448 Personal history of other diseases of urinary system; Z96.0 Presence of urogenital implants
CPT/HCPCS: 36415; 71046; 80053; 83735; 84484; 85025; 85610; 85730; 93005; 99285

== ENCOUNTER → 2019-11-06 | Outpatient (CLI) | payer MEDICARE ==
[2019-11-06 13:31] LABS: African American GFR (CKD) >90 (>60 ml/min/1.73 sqM); Blood Urea Nitrogen 19 mg/dL (7-17); Non-African American GFR(CKD) >90 (>60 ml/min/1.73 sqM)
--- NOTE | 2019-11-07 07:20 | CT ---
EXAMINATION TYPE: CT abdomen pelvis w con DATE OF EXAM: 11/06/2019 HISTORY: ventral hernia CT DLP: 1264.3mGycm Automated Exposure Control for Dose Reduction was Utilized. CONTRAST: CT scan of the abdomen and pelvis is performed with IV Contrast, patient injected with 100 mL of Isov ue 300. COMPARISON: CT chest dated 12/09/2016 FINDINGS: There are 2 ventral abdominal hernias. The first and most cranial abdominal wall defect is midline located 16 cm cranial to the umbilicus. The defect opening measures 2.0 cm and the hernia sac is a fat-containing only measuring 5.6 cm. Findings are marked on series 8 image 66 and series 3 chuy ge 27. The second ventral abdominal wall defect is large bowel containing and mesenteric fat containi ng with a hernia opening measuring 4.8 cm and the hernia sac measuring 16.1 cm. The defect is located 6.6 cm above the umbilicus. Findings are marked on series 8 image 66 and series 3 image 46 as well a s 50. There is a fat-containing small diaphragmatic hernia seen posteriorly on the right on coronal series 8 image 36. There is right hemidiaphragm elevation likely secondary to the prominent liver size. The lung bases demonstrate multifocal subsegmental atelectasis but are otherwise unremarkable. There is a small hiatal hernia. Partial visualization of at least mild coronary calcifications. The spleen is n oted to be small in size with an adjacent splenule. The liver nears criteria for mild degree hepatic steatosis but that's not yet reach criteria. Gallbladder surgically absent. 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 This measures 1.4 cm. Right adrenal gland is unremarkable. Kidneys demonstrate no eviden ce of hydronephrosis. Moderate degree colonic fecal stasis is seen. Pancreas is unremarkable. Common bile duct dilatation is likely post surgical. Uterus is surgically absent. Healed chronic fracture deformity of the sacrum is seen. Grade 1 anterolisthesis of L3 on L4 is noted likely secondary to hypertrophic facet change. No greater than 1 cm short axis lymph node in the abd omen nor pelvis. IMPRESSION: 1. Two ventral abdominal hernias with detailed measurements above. The first is small and fat-contain ing only and the second is more caudal and large bowel containing. No current evidence of obstruction . 2. Small fat-containing posterior right diaphragmatic hernia and small hiatal hernia. 3. Probable left adrenal benign lipid rich adenoma that approaches criteria for benignity but has not changed in size from 2017.
== END | disposition home or self-care (01) ==
LOC: RADCTMAIN 12:37
PROVIDERS: ATTEND Surgery
DX: K43.9 Ventral hernia without obstruction or gangrene (principal); K44.9 Diaphragmatic hernia without obstruction or gangrene
CPT/HCPCS: 82565; 84520; 74177; 36415; Q9967

== ENCOUNTER → 2019-11-12 | Outpatient (CLI) | payer MEDICARE ==
[~2019-11-12] MED LIST changes: -DEXAMETHASONE SOD PHOSPHATE 10 MG/ML 1 ML VIAL IV ONE; -HYDROmorphone 0.5 MG/0.5 ML SYRINGE IVP PRN; -LIDOCAINE 1% 20 ML VIAL (10MG/ML) FOR IV START INTRADERMA PRN; -MIDAZOLAM 2 MG/2 ML VIAL IV PRN; -ONDANSETRON 4 MG/2 ML VIAL IVP ONE; +REGADENOSON 0.4 MG/5 ML SYRINGE IV ONE; -SCOPOLAMINE 1.5MG/72HR PATCH TRANSDERM ONE; -ceFAZolin IN SWFI 2 GM/20 ML SYRINGE IVP ONE
--- NOTE | 2019-11-12 10:52 | NM ---
EXAMINATION TYPE: NM stress lexiscan cardiolite DATE OF EXAM: 11/12/2019 COMPARISON: NONE HISTORY: Precordial chest pain TECHNIQUE: After the intravenous administration of 10.46 mCi Tc 99m Sestamibi - Cardiolite resting S PECT images acquired 45 minutes post injection. The patient received 0.4mg Lexiscan, 27.2 mCi Tc 99m Sestamibi - Stress images obtained [address] injection FINDINGS: Review of stress and rest SPECT images demonstrates no distinct perfusion abnormality. Gated analysi s shows normal wall motion with an estimated left ventricular ejection fraction of 56 %. TID is withi n normal limits calculated at 0.96. IMPRESSION: No scintigraphic evidence for reversible ischemia.
--- NOTE | 2019-11-12 12:07 | EST ---
EXERCISE STRESS AGE: 63 SEX: Female HT: 65" WT: 196 pounds PROTOCOL: Lexiscan Cardiolite STAGE: DURATION OF EXERCISE: HEART RATE REST: 68 BLOOD PRESSURE REST: 134/70 MAXIMUM HEART RATE ACHIEVED: 84 MAXIMUM BLOOD PRESSURE: 135/64 85% MPHR: 100% MPHR: METS: INDICATIONS: Chest pain. CLINICAL INFORMATION: Baseline EKG shows sinus rhythm with poor R-wave progression. The patient was given intravenous Lexiscan as per protocol. Did not have chest pain or diagnostic ST-segment depression. CONCLUSIONS: 1. Negative stress test by EKG criteria. 2. Cardiolite portion of the stress test will be reported separately. MMODL / IJN: [id number] /
== END | disposition home or self-care (01) ==
LOC: RADNMMAIN 07:35
PROVIDERS: ATTEND Internal Medicine Critical Care Medicine
DX: R07.2 Precordial pain (principal); Z88.5 Allergy status to narcotic agent
CPT/HCPCS: 93017; 78452; A9500; J2785

== ENCOUNTER 2020-05-12 13:55 | Inpatient (IN) | payer MEDICARE ==
[2020-05-12] MEDS ORDERED: SODIUM CHLORIDE 0.9% 1,000 ML IV STA (14:18)
[2020-05-12] MEDS ORDERED: PANTOPRAZOLE 40 MG/10 ML VIAL IVP STA (14:18)
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
[2020-05-12 15:23] LABS: Basophils # (A) 0.1 k/uL (0-0.2); Basophils % (A) 1 %; Eosinophils # (A) 0.3 k/uL (0-0.7); Eosinophils % (A) 3 %; HCT 44.7 % (34.0-46.0); HGB 14.4 gm/dL (11.4-16.0); Lymphocytes # (A) 2.4 k/uL (1.0-4.8); Lymphocytes % (A) 27 %; MCH 29.6 pg (25.0-35.0); MCHC 32.3 g/dL (31.0-37.0); MCV 91.6 fL (80.0-100.0); Mean Platelet Volume 7.8; Monocytes # (A) 0.4 k/uL (0-1.0); Monocytes % (A) 4 %; Neutrophils # (A) 5.5 k/uL (1.3-7.7); Neutrophils % (A) 63 %; Platelet Count 374 k/uL (150-450); RBC 4.88 m/uL (3.80-5.40); WBC 8.8 k/uL (3.8-10.6)
[2020-05-12 15:33] LABS: ALT 19 U/L (4-34); AST 33 U/L (14-36); African American GFR (CKD) >90 (>60 ml/min/1.73 sqM); Albumin 4.5 g/dL (3.5-5.0); Alkaline Phosphatase 134 U/L (38-126); Amylase 37 U/L (30-110); Anion Gap 9 mmol/L; Blood Urea Nitrogen 16 mg/dL (7-17); Calcium 9.9 mg/dL (8.4-10.2); Carbon Dioxide 24 mmol/L (22-30); Chloride 105 mmol/L (98-107); Glucose 98 mg/dL (74-99); Non-African American GFR(CKD) >90 (>60 ml/min/1.73 sqM); Potassium 4.5 mmol/L (3.5-5.1); Sodium 138 mmol/L (137-145); Total Bilirubin 0.5 mg/dL (0.2-1.3); Total Protein 7.2 g/dL (6.3-8.2)
--- NOTE | 2020-05-12 16:43 | CT ---
EXAMINATION TYPE: CT abdomen pelvis w con DATE OF EXAM: 05/12/2020 COMPARISON: 11/06/2019 HISTORY: 64-year-old female with ventral hernia, abdominal pain TECHNIQUE: Contiguous axial scanning of the abdomen and pelvis following administration of 100 ml Iso monika 300 IV contrast. Delayed images through the kidneys and coronal/sagittal reconstructions perform ed. CT DLP: 1226.7 mGycm Automated exposure control for dose reduction was used. FINDINGS: Heart normal size without pericardial effusion. Scattered coronary artery calcifications are present. Redemonstrated right-sided [place] hernia containing fat. No focal liver lesion. Common bile duct measuring up to 1.3 cm, unchanged status post cholecystectomy . Mild prominence to the central hepatic biliary system is well, unchanged. Portal venous system is p atent. Small hiatal hernia. Stable 1.5 cm low-density nodule left adrenal gland suggesting a lipid rich adrenal adenoma. Right adrenal gland, kidneys, spleen with a small splenules, and pancreas appear within normal limits . There is a midline epigastric omental fat-containing hernia measuring 5.7 cm wide. The abdominal wall defect measures 2.0 cm wide. Some overlying mesh material is present, unchanged from prior. Additional larger umbilical hernia measuring up to 15.6 cm wide. The abdominal wall defect measures 3 .4 cm wide. The hernia is again noted to contain mid transverse colon. There is moderate overall stoo l burden and a relative transition point of the efferent limb. Similar mass effect from the hernia in to the anterior abdominal wall. Mild stranding within the hernia sac. No dilated small bowel, free fluid, or free air. No mesenteric or retroperitoneal lymphadenopathy. Bladder urine distended. Uterus surgically absent. Neither ovary clearly identified. No abnormal flui d collection in the pelvis or pelvic lymphadenopathy. Bones: Old fracture deformities of the right inferior pubic ramus. Degenerative change in both hips. Either congenital posttraumatic deformity of the sacrum. Accentuated mid lumbar lordosis with grade 1 anterolisthesis at L3-L4. IMPRESSION: 1. Ventral abdominal wall umbilical hernia measuring up to 15.6 cm wide. While the overall size is si milar, there is now more stool filling the herniated mid transverse colon and a relative transition p oint of the efferent limb of the colon, greater degree of mass effect onto the anterior abdominal wal l from the hernia sac, and now mild fat stranding. A relative colonic obstruction is suggested along with hernia incarceration. No pneumatosis, free fluid, or free fluid seen to indicate strangulation a t this time. 2. Additional ventral epigastric midline hernia containing omental fat and measuring 5.7 cm wide is s imilar. There seems to be overlying mesh material from prior attempted repair. 3. Small hiatal hernia. Fat-containing right-sided [place]dalek hernia. 1.5 cm left adrenal adenoma.
[2020-05-12] MEDS ORDERED: NALOXONE 0.4 MG/ML 1 ML VIAL IV PRN (17:52)
[2020-05-12] MEDS ORDERED: HYDROmorphone 2 MG TAB PO PRN (17:52)
[2020-05-12] MEDS ORDERED: LORazepam 2 MG/ML INJ IV PRN (17:52)
[2020-05-12] MEDS: SODIUM CHLORIDE 0.9% 1,000 ML IV SCH (18:28)
[2020-05-12 19:01] LABS: Appearance,Urine Clear (Clear); Bilirubin,Urine Negative (Negative); Blood,Urine Negative (Negative); Color,Urine Light Yellow; Glucose,Urine (UA) Negative (Negative); Ketones,Urine Negative (Negative); Leukocyte Esterase,Urine Moderate (Negative); Mucus,Urine Rare /hpf; Nitrite,Urine Negative (Negative); Protein,Urine Negative (Negative); RBC,Urine 4 /hpf (0-5); Specific Gravity,Urine 1.037 (1.001-1.035); Squamous Epithelial Cell,Urine 4 /hpf (0-4); Urobilinogen,Urine <2.0 mg/dL (<2.0); WBC,Urine 22 /hpf (0-5)
[2020-05-12] MEDS: HYDROmorphone 0.5 MG/0.5 ML SYRINGE IVP PRN (22:27)
[2020-05-13] MEDS: ACETAMINOPHEN TAB 325 MG TAB PO PRN ×3 (06:40→19:34)
[2020-05-13] MEDS: SODIUM CHLORIDE 0.9% 1,000 ML IV SCH ×2 (06:40→19:41)
[2020-05-13] MEDS ORDERED: ALBUTEROL NEBULIZED 2.5 MG/3 ML INHALATION PRN (13:07)
[2020-05-13] MEDS ORDERED: ONDANSETRON 4 MG/2 ML VIAL IVP PRN (13:08)
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
[2020-05-13] MEDS ORDERED: LOSARTAN 50 MG TAB PO STA (13:21)
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
[2020-05-13] MEDS: DOCUSATE 100 MG CAP PO SCH ×2 (13:35→23:40)
[2020-05-13 13:51] LABS: Glucose,Whole Blood 110 mg/dL (75-99)
[2020-05-13] MEDS: HYDROmorphone 0.5 MG/0.5 ML SYRINGE IVP PRN (16:14)
[2020-05-13] MEDS: INSULIN ASPART (NovoLOG) 100 UNIT/ML VIAL SQ SCH ×2 (17:15→21:10)
[2020-05-13 17:25] LABS: Glucose,Whole Blood 93 mg/dL (75-99)
[2020-05-13] MEDS: KETOROLAC 15 MG/ML 1 ML VIAL IVP SCH ×2 (18:29→23:40)
[2020-05-13] MEDS: SYMBICORT 160-4.5 MCG INHALER INHALATION SCH (18:37)
[2020-05-13] MEDS ORDERED: Mirabegron [Myrbetriq] PO SCH (21:00)
[2020-05-13] MEDS ORDERED: MELATONIN 3 MG TABLET PO SCH (21:00)
[2020-05-13] MEDS ORDERED: MONTELUKAST 10 MG TAB PO SCH (21:00)
[2020-05-13] MEDS ORDERED: ATORVASTATIN 10 MG TAB PO SCH (21:00)
[2020-05-13] MEDS: HEPARIN SODIUM,PORCINE 5,000 UNIT/ML 1 ML VIAL SQ SCH (21:11)
[2020-05-13 21:15] LABS: Glucose,Whole Blood 116 mg/dL (75-99)
[2020-05-14] MEDS: KETOROLAC 15 MG/ML 1 ML VIAL IVP SCH ×3 (06:52→18:06)
[2020-05-14] MEDS: INSULIN ASPART (NovoLOG) 100 UNIT/ML VIAL SQ SCH ×3 (06:52→18:06)
[2020-05-14 06:54] LABS: Glucose,Whole Blood 120 mg/dL (75-99)
[2020-05-14] MEDS ORDERED: PANTOPRAZOLE 40 MG TABLET PO SCH (07:30)
--- NOTE | 2020-05-14 07:55 | XR ---
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 Lung bases clear. No evidence for free intraperitoneal air. Large stool burden. No dilated small bowel or air-fluid levels are seen. Patient's pelvis is obliqued. Multiple pelvic phlebolith. IMPRESSION: Large stool burden suggests underlying constipation. Nonobstructive bowel gas pattern.
[2020-05-14] MEDS: SYMBICORT 160-4.5 MCG INHALER INHALATION SCH (08:42)
[2020-05-14] MEDS ORDERED: LOSARTAN 50 MG TAB PO SCH (09:00)
[2020-05-14] MEDS: DOCUSATE 100 MG CAP PO SCH (09:04)
[2020-05-14] MEDS: HEPARIN SODIUM,PORCINE 5,000 UNIT/ML 1 ML VIAL SQ SCH (09:04)
[2020-05-14] MEDS: SODIUM CHLORIDE 0.9% 1,000 ML IV SCH (09:11)
[2020-05-14 09:44] LABS: Basophils # (A) 0.1 k/uL (0-0.2); Basophils % (A) 2 %; Eosinophils # (A) 0.3 k/uL (0-0.7); Eosinophils % (A) 5 %; HGB 13.1 gm/dL (11.4-16.0); Lymphocytes # (A) 1.6 k/uL (1.0-4.8); Lymphocytes % (A) 31 %; MCH 29.5 pg (25.0-35.0); MCHC 31.2 g/dL (31.0-37.0); MCV 94.7 fL (80.0-100.0); Mean Platelet Volume 8.1; Monocytes # (A) 0.3 k/uL (0-1.0); Monocytes % (A) 6 %; Neutrophils # (A) 2.7 k/uL (1.3-7.7); Neutrophils % (A) 54 %; Platelet Count 340 k/uL (150-450); RBC 4.44 m/uL (3.80-5.40); RDW 13.2 % (11.5-15.5)
[2020-05-14 09:59] LABS: African American GFR (CKD) >90 (>60 ml/min/1.73 sqM); Anion Gap 10 mmol/L; Blood Urea Nitrogen 12 mg/dL (7-17); Carbon Dioxide 23 mmol/L (22-30); Chloride 103 mmol/L (98-107); Glucose 183 mg/dL (74-99); Non-African American GFR(CKD) >90 (>60 ml/min/1.73 sqM); Potassium 4.4 mmol/L (3.5-5.1); Sodium 136 mmol/L (137-145)
[2020-05-14 10:00] LABS: Calcium 9.4 mg/dL (8.4-10.2)
[2020-05-14] MEDS ORDERED: MAGNESIUM CITRATE 296 ML BOTTLE PO ONE (11:30)
[2020-05-14 12:42] LABS: Glucose,Whole Blood 93 mg/dL (75-99)
--- NOTE | 2020-05-14 12:50 | P.PN ---
Subjective Progress Note Date: 05/14/20 Patient feeling better today. Abdominal pain is improving. She had a bowel movement last night. No nausea or vomiting. Objective - Vital Signs Vital signs: Vital Signs Temp 97 F L 05/14/20 08:49 Pulse 66 05/14/20 08:50 Resp 18 05/14/20 08:49 BP 139/66 05/14/20 08:49 Pulse Ox 95 05/13/20 23:00 Intake & Output 05/13/20 05/14/20 05/14/20 18:59 06:59 18:59 Other: Voiding Method Toilet # Voids 1 2 1 # Bowel Movements 1 - Exam General: The patient is awake and alert, in no distress Eye: there is normal conjunctiva bilaterally. Neck: The neck is supple, there is no JVD. Cardiovascular: Normal S1-S2, no S3-S4, no murmurs. Respiratory: Lungs clear to auscultation bilaterally Gastrointestinal: Abdomen is soft, there is a large ventral hernia Musculoskeletal: There is no pedal edema. Neurological:. Speech is normal. Skin: Skin is warm and dry - Labs CBC & Chem 7: 05/14/20 09:14 05/14/20 09:14 Labs: Abnormal Lab Results - Last 24 Hours (Table) 05/13/20 05/13/20 05/14/20 Range/Units 13:50 21:08 06:47 Sodium (137-145) mmol/L Creatinine (0.52-1.04) mg/dL Glucose (74-99) mg/dL POC Glucose (mg/dL) 110 H 116 H 120 H (75-99) mg/dL 05/14/20 Range/Units 09:14 Sodium 136 L (137-145) mmol/L Creatinine 0.50 L (0.52-1.04) mg/dL Glucose 183 H (74-99) mg/dL POC Glucose (mg/dL) (75-99) mg/dL Microbiology - Last 24 Hours (Table) 05/12/20 18:24 Urine Culture - Final Urine,Voided Assessment and Plan Assessment: 1. Worsening large ventral hernia with questionable incarceration/colon obstruction noted on computed tomography scan of the abdomen. Management per general surgery. Pain control and antiemetic as needed. 2. Essential hypertension: Blood pressure better controlled. will continue to monitor blood pressure closely 3. Type 2 diabetes, hold metformin and continue sliding scale insulin for now 4. History of moderate persistent asthma, with no evidence of exacerbation. Continue home inhalers as prescribed 5. Chronic medical problems include hyperlipidemia, GERD, chronic urinary incontinence 6. DVT prophylaxis with subcu heparin Today, I reviewed her medication list and lab work results. Continue current regimen. Management per general surgery. We will continue to follow up on the patient closely with you. Thank you for the consultation
--- NOTE | 2020-05-14 13:22 | P.PN ---
<CorazonPrecious bernal - Last Filed: 05/14/20 13:15> Subjective Progress Note Date: 05/14/20 CHIEF COMPLAINT: Abdominal pain with incisional hernia HISTORY OF PRESENT ILLNESS: Patient is being followed for her large ventral abd ominal wall hernia. Today she reports no pain. She denies any nausea or vomiting. She is on a full liquid diet. Abdominal x-ray had showed a larger stool burden that was suggestive of constipation. She did have a formed small stool yesterday. Mag citrate has been ordered today. She is afebrile. WBC 5. Hemoglobin 13.1 platelets 340 PHYSICAL EXAM: VITAL SIGNS: Reviewed. GENERAL: Well-developed in no acute distress. HEENT: No sclera icterus. Extraocular movements grossly intact. Moist buccal mucosa. Head is atraumatic, normocephalic. ABDOMEN: Soft. Nondistended. Nontender. NEUROLOGIC: Alert and oriented. Cranial nerves II through XII grossly intact. ASSESSMENT: 1. Large ventral abdominal wall hernia at old incision site. CT scan had reported relative colonic obstruction with incarcerated hernia prior to hernia being reduced. 2. Epigastric midline hernia containing omental fat 3. Small hiatal hernia 4. UTI 5. History of splenectomy 6. History of prior incisional hernia repair PLAN: -Continue full liquid diet -No surgical intervention planned during patient's hospitalization -Mag citrate given -Anticipate discharge possibly later today if patient tolerating diet and has bowel movement -If patient discharged then she will be contacted by phone to schedule elective hernia repair in the next few weeks Physician Joss House Keeper note has been reviewed by physician. Signing provider agrees with the documented findings, assessment, and plan of care. Objective - Vital Signs Vital signs: Vital Signs Temp 97 F L 05/14/20 08:49 Pulse 66 05/14/20 08:50 Resp 18 05/14/20 08:49 BP 139/66 05/14/20 08:49 Pulse Ox 95 05/13/20 23:00 Intake & Output 05/13/20 05/14/20 05/14/20 18:59 06:59 18:59 Other: Voiding Method Toilet # Voids 1 2 1 # Bowel Movements 1 - Labs CBC & Chem 7: 05/14/20 09:14 05/14/20 09:14 Labs: Abnormal Lab Results - Last 24 Hours (Table) 05/13/20 05/13/2005/14/20 Range/Units 13:50 21:08 06:47 Sodium (137-145) mmol/L Creatinine (0.52-1.04) mg/dL Glucose (74-99) mg/dL POC Glucose (mg/dL) 110 H 116 H 120 H (75-99) mg/dL 05/14/20 Range/Units 09:14 Sodium 136 L (137-145) mmol/L Creatinine 0.50 L (0.52-1.04) mg/dL Glucose 183 H (74-99) mg/dL POC Glucose (mg/dL) (75-99) mg/dL Microbiology - Last 24 Hours (Table) 05/12/20 18:24 Urine Culture - Final Urine,Voided <Kraig Iqbal - Last Filed: 05/14/20 19:00> Subjective As above. Denies pain today. Tolerating diet. Repeat x-rays show persistent constipation without obstruction. Will give one bottle of mag citrate. Plan discharge home later this evening. We'll schedule hernia repair one to 2 weeks. Objective - Vital Signs Vital signs: Vital Signs Temp 97.6 F 05/14/20 15:51 Pulse 78 05/14/20 15:51 Resp 20 05/14/20 15:51 BP 160/80 05/14/20 15:51 Pulse Ox 96 05/14/20 15:51 Intake & Output 05/13/20 05/14/20 05/14/20 18:59 06:59 18:59 Other: Voiding Method Toilet # Voids 1 2 1 # Bowel Movements 1 - Labs CBC & Chem 7: 05/14/20 09:14 05/14/20 09:14 Labs: Abnormal Lab Results - Last 24 Hours (Table) 05/13/20 05/14/20 05/14/20 Range/Units 21:08 06:47 09:14 Sodium 136 L (137-145) mmol/L Creatinine 0.50 L (0.52-1.04) mg/dL Glucose 183 H (74-99) mg/dL POC Glucose (mg/dL) 116 H 120 H (75-99) mg/dL 05/14/20 Range/Units 17:49 Sodium (137-145) mmol/L Creatinine (0.52-1.04) mg/dL Glucose (74-99) mg/dL POC Glucose (mg/dL) 101 H (75-99) mg/dL Microbiology - Last 24 Hours (Table) 05/12/20 18:24 Urine Culture - Final Urine,Voided
[2020-05-14 16:37] VITALS: BP 160/80; PULSE 78; RESP 20; TEMP 97.6
[2020-05-14 17:56] LABS: Glucose,Whole Blood 101 mg/dL (75-99)
== END 2020-05-14 18:51 | disposition home or self-care (01) | DRG 394 ==
LOC: EC 13:55 → 4SSUR 17:52 → 6PED 05-13 10:25
PROVIDERS: ADMIT Surgery; ATTEND Surgery
DX: K43.0 Incisional hernia with obstruction, without gangrene (principal); N39.0 Urinary tract infection, site not specified; E11.9 Type 2 diabetes mellitus without complications; Z89.421 Acquired absence of other right toe(s); N39.41 Urge incontinence; J45.40 Moderate persistent asthma, uncomplicated; I10 Essential (primary) hypertension; E78.5 Hyperlipidemia, unspecified; K21.9 Gastro-esophageal reflux disease without esophagitis; Z80.42 Family history of malignant neoplasm of prostate; K44.9 Diaphragmatic hernia without obstruction or gangrene; Z79.51 Long term (current) use of inhaled steroids; Z79.899 Other long term (current) drug therapy; Z79.84 Long term (current) use of oral hypoglycemic drugs; Z90.81 Acquired absence of spleen; Z98.890 Other specified postprocedural states; Z86.14 Personal history of Methicillin resistant Staphylococcus aureus infection; Z90.710 Acquired absence of both cervix and uterus; Z96.652 Presence of left artificial knee joint; Z88.5 Allergy status to narcotic agent; Z82.0 Family history of epilepsy and other diseases of the nervous system
CPT/HCPCS: 36415; 74019; 74177; 80048; 80053; 81001; 82150; 83036; 83605; 83690; 84484; 85025; 87086; 93005; 94640; 96361; 96374; 99285

== ENCOUNTER 2020-05-29 10:50 | Inpatient (IN) | payer MEDICARE ==
[2020-05-27 12:40] VITALS: BMI 32.5
[~2020-05-29 10:50] MED LIST changes: +ACETAMINOPHEN TAB 500 MG TAB PO ONE; +DEXAMETHASONE SOD PHOSPHATE 10 MG/ML 1 ML VIAL IV ONE; +HEPARIN SODIUM,PORCINE 5,000 UNIT/ML 1 ML VIAL SQ ONE; +LIDOCAINE 1% (10MG/ML) FOR IV START INTRADERMA PRN; +ONDANSETRON 4 MG/2 ML VIAL IVP ONE; +ONDANSETRON 4 MG/2 ML VIAL IVP PRN; -REGADENOSON 0.4 MG/5 ML SYRINGE IV ONE
[2020-05-29] MEDS: LACTATED RINGERS 1,000 ML IV SCH ×2 (11:54→17:02)
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
[2020-05-29 12:02] LABS: Glucose,Whole Blood 114 mg/dL (75-99)
[2020-05-29] MEDS ORDERED: GLYCOPYRROLATE 0.2 MG/ML 2 ML VIAL ONE (12:21)
[2020-05-29] MEDS ORDERED: PROPOFOL 10 MG/ML 20 ML VIAL IV ONE (12:21)
[2020-05-29] MEDS ORDERED: PHENYLEPHRINE-0.9% NACL SYG 1 MG/10 ML SYRINGE ONE (12:21)
[2020-05-29] MEDS ORDERED: ROCURONIUM 10 MG/ML (5 ML VIAL) IV ONE (12:21)
[2020-05-29] MEDS ORDERED: LIDOCAINE 1% INJ 10MG/ML (20 ML MDV) ONE (12:21)
[2020-05-29] MEDS ORDERED: HYDROmorphone (PF) 1 MG/ML ONE (12:21)
[2020-05-29] MEDS ORDERED: fentaNYL (PF) 50 MCG/ML 2 ML AMP ONE (12:21)
[2020-05-29] MEDS ORDERED: NEOSTIGMINE 1 MG/ML 10 ML VIAL ONE (12:21)
[2020-05-29] MEDS ORDERED: SUCCINYLCHOLINE CHLORIDE 100 MG/5 ML SYR IV ONE (12:21)
[2020-05-29] MEDS ORDERED: MIDAZOLAM 2 MG/2 ML VIAL ONE (12:21)
[2020-05-29] MEDS ORDERED: METOCLOPRAMIDE 5 MG/ML 2 ML VIAL IVP PRN (15:05)
[2020-05-29] MEDS ORDERED: NALOXONE 0.4 MG/ML 1 ML VIAL IV PRN (15:05)
[2020-05-29] MEDS ORDERED: ACETAMINOPHEN IV (For NPO) 1,000 MG in EMPTY BAG 1 BAG IVPB ONE (15:05)
[2020-05-29] MEDS: HYDROmorphone 0.5 MG/0.5 ML SYRINGE IVP PRN ×2 (15:17→15:29)
--- NOTE | 2020-05-29 15:18 | P.OP ---
Date of Procedure: 05/29/20 Procedure(s) Performed: PREOPERATIVE DIAGNOSIS: Incarcerated recurrent incisional hernia POSTOPERATIVE DIAGNOSIS: Same PROCEDURE: Incarcerated incisional hernia with mesh, prosthetic mesh removal SURGEON: Rasheed EBL: 50 Harris ANESTHESIA: Gen. COMPLICATIONS: None OPERATIVE PROCEDURE: Patient placed on the operating table in the supine position. Preoperative Wilson catheter was placed. Abdomen was prepped and draped in usual sterile fashion. The previous incision was re-incised extending from the superior aspect of the incision which was subxiphoid down to the infraumbilical location. Dissection through the subcutaneous tissues took place using electrocautery. A large hernia was identified. The hernia sac along with the overlying adherent mesh was carefully dissected down to the level of the fascia where it was fully excised. The patient was found to have a 2.5 x 2.5 cm fascial defect superiorly containing fatty tissue. This hernia sac was excised as well. The larger hernia present in the supraumbilical location had a diameter of approximately 7 x 8 cm. The adhesions to the abdominal wall were divided using sharp dissection and cautery circumferentially. The peritoneum was fully free at that point. The upper hernia was repaired after placing a 6.4 cm mesh beneath the fascia and this was sutured to the fascia using several trans-fascial 0 Ethibond sutures. The defect was then closed horizontally using overlapping mattress 0 Ethibond sutures. The larger hernia was repaired using a large oval mesh. This was again sutured to the fascia using interrupted trans- fascial 0 Ethibond sutures. That defect was then closed vertically using overlapping vest over pants mattress sutures that were 0 Ethibond. The folding edge was tacked down using 0 Ethibond sutures as well. 2 separate drains were placed anterior to the fascial closure exiting from the right mid and left mid abdomen. These were sutured to the skin using 2-0 silk. The subcutaneous tissues were then closed using interrupted 2-0 Vicryl sutures. The space was closed by reapproximating the fat to the underlying fascia. The skin was closed using lilia. Sterile dressings and abdominal binder were applied. DISPOSITION: Stable to recovery room
[2020-05-29 15:29] LABS: Glucose,Whole Blood 151 mg/dL (75-99)
[2020-05-29] MEDS ORDERED: PROMETHAZINE INJ 25 MG/ML 1 ML VIAL IVPB ONE (15:41)
[2020-05-29] MEDS ORDERED: fentaNYL (PF) 50 MCG/ML 2 ML AMP IV ONE (15:45)
[2020-05-29] MEDS ORDERED: diphenhydrAMINE 50 MG/ML 1 ML VIAL IVP ONE (16:23)
[2020-05-29] MEDS ORDERED: ALBUTEROL HFA INHALER INHALATION PRN (16:25)
[2020-05-29 17:49] LABS: Glucose,Whole Blood 127 mg/dL (75-99)
[2020-05-29] MEDS: INSULIN ASPART (NovoLOG) 100 UNIT/ML VIAL SQ SCH ×2 (17:50→20:59)
[2020-05-29] MEDS: SYMBICORT 160-4.5 MCG INHALER INHALATION SCH (20:13)
[2020-05-29 20:43] LABS: Glucose,Whole Blood 132 mg/dL (75-99)
[2020-05-29] MEDS: MONTELUKAST 10 MG TAB PO SCH (20:43)
[2020-05-29] MEDS: ATORVASTATIN 10 MG TAB PO SCH (20:43)
[2020-05-29] MEDS: MELATONIN 3 MG TABLET PO SCH (20:44)
[2020-05-29] MEDS: DOCUSATE 100 MG CAP PO SCH (20:44)
[2020-05-29] MEDS: HEPARIN SODIUM,PORCINE 5,000 UNIT/ML 1 ML VIAL SQ SCH (20:45)
[2020-05-29] MEDS: HYDROmorphone 1 MG/ML 1 ML SYRINGE IVP PRN (20:46)
[2020-05-30 01:56] LABS: Glucose,Whole Blood 130 mg/dL (75-99)
[2020-05-30] MEDS: INSULIN ASPART (NovoLOG) 100 UNIT/ML VIAL SQ SCH ×5 (02:03→21:35)
[2020-05-30] MEDS: HEPARIN SODIUM,PORCINE 5,000 UNIT/ML 1 ML VIAL SQ SCH ×3 (03:59→21:18)
[2020-05-30] MEDS: HYDROmorphone 1 MG/ML 1 ML SYRINGE IVP PRN (06:11)
[2020-05-30 06:46] LABS: Glucose,Whole Blood 122 mg/dL (75-99)
[2020-05-30 07:20] LABS: Basophils # (A) 0.1 k/uL (0-0.2); Basophils % (A) 1 %; Eosinophils # (A) 0.1 k/uL (0-0.7); Eosinophils % (A) 1 %; HCT 43.3 % (34.0-46.0); HGB 13.9 gm/dL (11.4-16.0); Lymphocytes # (A) 1.8 k/uL (1.0-4.8); Lymphocytes % (A) 13 %; MCH 29.6 pg (25.0-35.0); MCHC 32.1 g/dL (31.0-37.0); MCV 92.1 fL (80.0-100.0); Mean Platelet Volume 7.8; Monocytes % (A) 7 %; Neutrophils # (A) 10.8 k/uL (1.3-7.7); Neutrophils % (A) 78 %; Platelet Count 340 k/uL (150-450); RDW 12.8 % (11.5-15.5); WBC 13.9 k/uL (3.8-10.6)
[2020-05-30] MEDS: KETOROLAC 15 MG/ML 1 ML VIAL IVP PRN ×2 (07:26→13:19)
[2020-05-30] MEDS: LACTATED RINGERS 1,000 ML IV SCH (07:30)
[2020-05-30 08:41] LABS: African American GFR (CKD) >90 (>60 ml/min/1.73 sqM); Anion Gap 8 mmol/L; Blood Urea Nitrogen 20 mg/dL (7-17); Calcium 9.5 mg/dL (8.4-10.2); Carbon Dioxide 24 mmol/L (22-30); Chloride 104 mmol/L (98-107); Glucose 126 mg/dL (74-99); Non-African American GFR(CKD) >90 (>60 ml/min/1.73 sqM); Potassium 4.4 mmol/L (3.5-5.1); Sodium 136 mmol/L (137-145)
[2020-05-30] MEDS: PANTOPRAZOLE 40 MG/10 ML VIAL IV SCH (09:09)
[2020-05-30] MEDS: LOSARTAN 50 MG TAB PO SCH (09:09)
[2020-05-30] MEDS: DOCUSATE 100 MG CAP PO SCH ×2 (09:20→21:26)
[2020-05-30] MEDS ORDERED: HYDROmorphone PCA 10 MG/50 ML BAG IV PRN (09:23)
[2020-05-30] MEDS ORDERED: NALOXONE 0.4 MG/ML 1 ML VIAL IV PRN (09:23)
--- NOTE | 2020-05-30 11:53 | P.PN ---
<Precious Vásquez - Last Filed: 05/30/20 11:39> Subjective Progress Note Date: 05/30/20 CHIEF COMPLAINT: Incarcerated recurrent incisional hernia HISTORY OF PRESENT ILLNESS: The patient is status post incarcerated incisional hernia repair with mesh and removal of prosthetic mesh. Patient is reporting that her pain is not controlled. She rates the pain about a 9 out of 10. She has pain with movement or cough. She denies any nausea or vomiting. She denies any flatus or bowel movement. She's afebrile. White count 13.9 it is elevated likely related to the Decadron she received yesterday. PHYSICAL EXAM: VITAL SIGNS: Reviewed. GENERAL: Well-developed in no acute distress. HEENT: No sclera icterus. Extraocular movements grossly intact. Moist buccal mucosa. Head is atraumatic, normocephalic. ABDOMEN: Soft. Mildly distended. Incision dressing clean dry and intact. Patient has abdominal binder in place. NEUROLOGIC: Alert and oriented. Cranial nerves II through XII grossly intact. ASSESSMENT: 1. Incarcerated incisional hernia repair with mesh and prosthetic mesh removal. Postop day #1 PLAN: -COLLECTION CARD CLERK pump added for pain control -Currently on a clear liquid diet to be advanced as tolerated -Encourage incentive spirometer use Physician Whale Trainer note has been reviewed by physician. Signing provider agrees with the documented findings, assessment, and plan of care. Objective - Vital Signs Vital signs: Vital Signs Temp 98.7 F 05/30/20 09:49 Pulse 75 05/30/20 09:49 Resp 20 05/30/20 09:49 BP 141/80 05/30/20 09:49 Pulse Ox 93 L 05/30/20 09:49 Intake & Output 05/29/20 05/30/20 05/30/20 18:59 06:59 18:59 Intake Total 1650 Output Total 480 530 Balance 1170 -530 Weight 90.2 kg 90.2 kg Intake: IV 1650 Output: Drainage 30 Left Abdomen 15 Right Abdomen 15 Urine 430 500 Estimated Blood Loss 50 Other: Voiding Method Indwelling Catheter Indwelling Catheter - Labs CBC & Chem 7: 05/30/20 06:50 05/30/20 06:50 Labs: Abnormal Lab Results - Last 24 Hours (Table) 05/29/20 05/29/20 05/29/20 Range/Units 12:00 15:28 17:45 WBC (3.8-10.6) k/uL Neutrophils # (1.3-7.7) k/uL Sodium (137-145) mmol/L BUN (7-17) mg/dL Glucose (74-99) mg/dL POC Glucose (mg/dL) 114 H 151 H 127 H (75-99) mg/dL 05/29/20 05/30/20 05/30/20 Range/Units 20:41 01:55 06:44 WBC (3.8-10.6) k/uL Neutrophils # (1.3-7.7) k/uL Sodium (137-145) mmol/L BUN (7-17) mg/dL Glucose (74-99) mg/dL POC Glucose (mg/dL) 132 H 130 H 122 H (75-99) mg/dL 05/30/20 05/30/20 Range/Units 06:50 06:50 WBC 13.9 H (3.8-10.6) k/uL Neutrophils # 10.8 H (1.3-7.7) k/uL Sodium 136 L (137-145) mmol/L BUN 20 H (7-17) mg/dL Glucose 126 H (74-99) mg/dL POC Glucose (mg/dL) (75-99) mg/dL <Kraig Iqbal - Last Filed: 05/30/20 15:50> Subjective As above. Patient still with pain although states if she is not moving the pain is 0 out of 10. Pain is only severe when she coughs or moves. We discussed options of COLLECTION CARD CLERK and epidural catheter placement. She would like to try the COLLECTION CARD CLERK first. She is hoping she will have to stay to many days in the hospital. We'll keep Wilson catheter today. Hopefully we'll be removing that tomorrow. STACY drains are serosanguineous. Incision is clean and dry. Mild tenderness on exam. We'll reevaluate tomorrow. Objective - Vital Signs Vital signs: Vital Signs Temp 98.7 F 05/30/20 09:49 Pulse 75 05/30/20 09:49 Resp 20 05/30/20 09:49 BP 141/80 05/30/20 09:49 Pulse Ox 95 05/30/20 15:30 Intake & Output 0905/30/20 05/30/20 18:59 06:59 18:59 Intake Total 1650 Output Total 480 530 800 Balance 1170 -530 -800 Weight 90.2 kg 90.2 kg Intake: IV 1650 Output: Drainage 30 Left Abdomen 15 Right Abdomen 15 Urine 430 500 800 Estimated Blood Loss 50 Other: Voiding Method Indwelling Catheter Indwelling Catheter Indwelling Catheter - Labs CBC & Chem 7: 05/30/20 06:50 05/30/20 06:50 Labs: Abnormal Lab Results - Last 24 Hours (Table) 05/29/20 05/29/20 05/30/20 Range/Units 17:45 20:41 01:55 WBC (3.8-10.6) k/uL Neutrophils # (1.3-7.7) k/uL Sodium (137-145) mmol/L BUN (7-17) mg/dL Glucose (74-99) mg/dL POC Glucose (mg/dL) 127 H 132 H 130 H (75-99) mg/dL 05/30/20 05/30/20 05/30/20 Range/Units 06:44 06:50 06:50 WBC 13.9 H (3.8-10.6) k/uL Neutrophils # 10.8 H (1.3-7.7) k/uL Sodium 136 L (137-145) mmol/L BUN 20 H (7-17) mg/dL Glucose 126 H (74-99) mg/dL POC Glucose (mg/dL) 122 H (75-99) mg/dL 05/30/20 Range/Units 13:13 WBC (3.8-10.6) k/uL Neutrophils # (1.3-7.7) k/uL Sodium (137-145) mmol/L BUN (7-17) mg/dL Glucose (74-99) mg/dL POC Glucose (mg/dL) 101 H (75-99) mg/dL Assessment and Plan (1) Incisional hernia Current Visit: Yes Status: Acute Code(s): K43.2 - INCISIONAL HERNIA WITHOUT OBSTRUCTION OR GANGRENE SNOMED Code(s): 083658043
[2020-05-30] MEDS: SYMBICORT 160-4.5 MCG INHALER INHALATION SCH ×2 (12:05→20:03)
[2020-05-30 13:15] LABS: Glucose,Whole Blood 101 mg/dL (75-99)
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
[2020-05-30 17:44] LABS: Glucose,Whole Blood 123 mg/dL (75-99)
[2020-05-30] MEDS ORDERED: PATIENT'S OWN (Mirabegron [Myrbetriq] 50 MG Tab.Er.24h) PO SCH (21:00)
[2020-05-30] MEDS ORDERED: SOLIFENACIN SUCCINATE 10 MG PO SCH (21:00)
[2020-05-30] MEDS: MONTELUKAST 10 MG TAB PO SCH (21:26)
[2020-05-30] MEDS: MELATONIN 3 MG TABLET PO SCH (21:26)
[2020-05-30] MEDS: ATORVASTATIN 10 MG TAB PO SCH (21:26)
[2020-05-30 21:34] LABS: Glucose,Whole Blood 125 mg/dL (75-99)
[2020-05-31 02:06] LABS: Glucose,Whole Blood 128 mg/dL (75-99)
[2020-05-31] MEDS: LACTATED RINGERS 1,000 ML IV SCH ×3 (02:09→20:05)
[2020-05-31] MEDS: INSULIN ASPART (NovoLOG) 100 UNIT/ML VIAL SQ SCH ×5 (05:30→21:16)
[2020-05-31] MEDS: HEPARIN SODIUM,PORCINE 5,000 UNIT/ML 1 ML VIAL SQ SCH ×3 (06:43→20:05)
[2020-05-31 06:52] LABS: Glucose,Whole Blood 123 mg/dL (75-99)
[2020-05-31] MEDS: ONDANSETRON 4 MG/2 ML VIAL IVP PRN ×2 (06:58→18:44)
[2020-05-31] MEDS: SYMBICORT 160-4.5 MCG INHALER INHALATION SCH ×2 (08:16→21:09)
[2020-05-31 08:57] LABS: Basophils # (A) 0.1 k/uL (0-0.2); Basophils % (A) 1 %; Eosinophils # (A) 0.5 k/uL (0-0.7); Eosinophils % (A) 3 %; HCT 40.4 % (34.0-46.0); HGB 12.8 gm/dL (11.4-16.0); Lymphocytes # (A) 1.8 k/uL (1.0-4.8); Lymphocytes % (A) 14 %; MCH 29.3 pg (25.0-35.0); MCHC 31.7 g/dL (31.0-37.0); MCV 92.4 fL (80.0-100.0); Mean Platelet Volume 7.4; Monocytes % (A) 7 %; Neutrophils # (A) 10.2 k/uL (1.3-7.7); Neutrophils % (A) 75 %; Platelet Count 335 k/uL (150-450); RBC 4.37 m/uL (3.80-5.40); RDW 12.9 % (11.5-15.5); WBC 13.6 k/uL (3.8-10.6)
[2020-05-31 09:18] LABS: African American GFR (CKD) >90 (>60 ml/min/1.73 sqM); Anion Gap 5 mmol/L; Blood Urea Nitrogen 15 mg/dL (7-17); Calcium 9.2 mg/dL (8.4-10.2); Carbon Dioxide 28 mmol/L (22-30); Chloride 101 mmol/L (98-107); Glucose 129 mg/dL (74-99); Non-African American GFR(CKD) >90 (>60 ml/min/1.73 sqM); Potassium 4.1 mmol/L (3.5-5.1); Sodium 134 mmol/L (137-145)
[2020-05-31] MEDS: DOCUSATE 100 MG CAP PO SCH ×2 (09:28→22:12)
[2020-05-31] MEDS: LOSARTAN 50 MG TAB PO SCH (09:28)
[2020-05-31] MEDS: PANTOPRAZOLE 40 MG TABLET PO SCH (09:45)
[2020-05-31] MEDS ORDERED: IBUPROFEN 600 MG TAB PO PRN (09:52)
[2020-05-31] MEDS: HYDROcodone/APAP 7.5-325MG 1 EACH TAB PO PRN ×2 (10:06→10:08)
[2020-05-31] MEDS: KETOROLAC 15 MG/ML 1 ML VIAL IVP PRN ×2 (12:23→18:10)
--- NOTE | 2020-05-31 12:26 | P.PN ---
Subjective Progress Note Date: 05/31/20 Principal diagnosis: Incisional hernia Patient doing well today. Pain is improving. Tolerating liquid diet. She is in a chair today. IV fell out last night. Objective - Vital Signs Vital signs: Vital Signs Temp 98.5 F 05/31/20 08:32 Pulse 82 05/31/20 08:32 Resp 16 05/31/20 08:32 BP 130/80 05/31/20 08:32 Pulse Ox 94 L 05/31/20 08:32 Intake & Output 05/30/20 05/31/20 05/31/20 18:59 06:59 18:59 Output Total 800 1845 Balance -800 -1845 Output: Drainage 95 Left Abdomen 50 Right Abdomen 45 Urine 800 1750 Other: Voiding Method Indwelling Catheter Indwelling Catheter Indwelling Catheter - Exam Abdomen: Soft, nondistended, mild tenderness, drains serosanguineous - Labs CBC & Chem 7: 05/31/20 08:30 05/31/20 08:30 Labs: Abnormal Lab Results - Last 24 Hours (Table) 05/30/20 05/30/20 05/30/20 Range/Units 13:13 17:42 21:14 WBC (3.8-10.6) k/uL Neutrophils # (1.3-7.7) k/uL Sodium (137-145) mmol/L Creatinine (0.52-1.04) mg/dL Glucose (74-99) mg/dL POC Glucose (mg/dL) 101 H 123 H 125 H (75-99) mg/dL 05/31/20 05/31/20 05/31/20 Range/Units 02:01 06:39 08:30 WBC 13.6 H (3.8-10.6) k/uL Neutrophils # 10.2 H (1.3-7.7) k/uL Sodium (137-145) mmol/L Creatinine (0.52-1.04) mg/dL Glucose (74-99) mg/dL POC Glucose (mg/dL) 128 H 123 H (75-99) mg/dL 05/31/20 Range/Units 08:30 WBC (3.8-10.6) k/uL Neutrophils # (1.3-7.7) k/uL Sodium 134 L (137-145) mmol/L Creatinine 0.50 L (0.52-1.04) mg/dL Glucose 129 H (74-99) mg/dL POC Glucose (mg/dL) (75-99) mg/dL Assessment and Plan (1) Incisional hernia Narrative/Plan: Patient doing better. We'll replace IV. Continue IV Toradol. Increase activity. Gradually advance diet. Repeat labs tomorrow. Current Visit: Yes Status: Acute Code(s): K43.2 - INCISIONAL HERNIA WITHOUT OBSTRUCTION OR GANGRENE SNOMED Code(s): 220932196
[2020-05-31 12:39] LABS: Glucose,Whole Blood 114 mg/dL (75-99)
[2020-05-31] MEDS ORDERED: SODIUM CHLORIDE 0.9% 500 ML 500 ML IV ONE (16:50)
--- NOTE | 2020-05-31 17:32 | PN ---
PROGRESS NOTE DATE OF SERVICE: 05/31/2020 I am covering for Dr. Lambert. HISTORY: This 64-year-old woman was admitted with incisional hernia repair, is being closely monitored. No chest pain. No palpitation. The patient has history of moderate persistent asthma, also. PHYSICAL EXAMINATION: Alert and oriented x2. Pulse 82, blood pressure 130/80, respirations 16, temperature 98.4, pulse ox 94% on room air. HEENT: Conjunctivae normal. NECK: No JVD. CARDIOVASCULAR: S1, S2 muffled. RESPIRATORY: Breath sounds diminished in the bases. A few scattered rhonchi. ABDOMEN: Soft. Status post surgery. LEGS are no edema. No swelling. NERVOUS SYSTEM: No focal deficits. LAB STUDIES: WBC 13.7, sodium is 134. Glucose noted ASSESSMENT: 1. Incarcerated incisional hernia with mesh. 2. Moderate persistent asthma. 3. Diabetes mellitus type 2. 4. Gastroesophageal reflux disease. 5. Hyperlipidemia. 6. Hypertension. 7. History of splenectomy. 8. History of urinary stress incontinence. 9. History of restless legs syndrome. 10.Increased WBC. 11.Hyponatremia. RECOMMENDATIONS AND DISCUSSION: This 64-year-old woman who presented with multiple medical issues, we will monitor the patient closely. Incentive spirometry. DVT prophylaxis. Otherwise, I would recommend incentive spirometry. Proton pump inhibitors. Closely follow with Surgery. Further recommendations to follow. MMODL / IJN: [id number] /
[2020-05-31 18:26] LABS: Glucose,Whole Blood 104 mg/dL (75-99)
--- NOTE | 2020-05-31 18:37 | P.PN ---
Progress Note - Text Progress Note Date: 05/31/20 I was contacted by the patient's nurse this afternoon that after her nap she felt chills. She was having some loose stools. Temp was found to be 100.9. Says her pain in her abdomen is still gradually improving. 1200 mL with incentive spirometry. Urine was slightly darker in color. We'll check blood cultures, urinalysis with culture, chest x-ray and C. diff.. Encourage increased incentive spirometry use. Increase basal fluid rate. We will empirically add Unasyn after cultures obtained. Recheck CBC tomorrow.
[2020-05-31 19:02] LABS: Appearance,Urine Clear (Clear); Bilirubin,Urine Negative (Negative); Blood,Urine Trace (Negative); Color,Urine Yellow; Glucose,Urine (UA) Negative (Negative); Ketones,Urine 1+ (Negative); Leukocyte Esterase,Urine Small (Negative); Mucus,Urine Rare /hpf; Nitrite,Urine Negative (Negative); PH, Urine 5.5 (5.0-8.0); Protein,Urine Negative (Negative); RBC,Urine 2 /hpf (0-5); Specific Gravity,Urine 1.015 (1.001-1.035); Squamous Epithelial Cell,Urine <1 /hpf (0-4); Urobilinogen,Urine <2.0 mg/dL (<2.0); WBC,Urine 4 /hpf (0-5)
[2020-05-31] MEDS: AMPICILLIN-SULBACTAM 3 GM in SODIUM CHLORIDE 0.9% 100 ML IVPB SCH (19:36)
--- NOTE | 2020-05-31 20:56 | XR ---
EXAMINATION TYPE: XR chest 2V DATE OF EXAM: 05/31/2020 COMPARISON: 10/31/2019 HISTORY: Chest pain TECHNIQUE: FINDINGS: There is some linear density left lung base. There is poor inspiration. There is elevation of the right diaphragm. There is no heart failure. There are no hilar masses. IMPRESSION: There is atelectasis at the lung bases increased compared to old exam. No heart failure s een.
[2020-05-31 21:15] LABS: Glucose,Whole Blood 159 mg/dL (75-99)
[2020-05-31] MEDS: MELATONIN 3 MG TABLET PO SCH (21:16)
[2020-05-31] MEDS: ATORVASTATIN 10 MG TAB PO SCH (21:16)
[2020-05-31] MEDS: MONTELUKAST 10 MG TAB PO SCH (21:16)
[2020-05-31] MEDS: PATIENT'S OWN (Mirabegron [Myrbetriq] 50 MG Tab.Er.24h) PO SCH (21:17)
[2020-05-31] MEDS: SOLIFENACIN SUCCINATE 10 MG PO SCH (21:18)
[2020-05-31] MEDS: ACETAMINOPHEN IV (For NPO) 1,000 MG in EMPTY BAG 1 BAG IVPB SCH (23:09)
[2020-06-01 01:58] LABS: Glucose,Whole Blood 142 mg/dL (75-99)
[2020-06-01] MEDS: INSULIN ASPART (NovoLOG) 100 UNIT/ML VIAL SQ SCH ×5 (02:03→23:01)
[2020-06-01] MEDS: HEPARIN SODIUM,PORCINE 5,000 UNIT/ML 1 ML VIAL SQ SCH ×3 (03:41→20:38)
[2020-06-01] MEDS: AMPICILLIN-SULBACTAM 3 GM in SODIUM CHLORIDE 0.9% 100 ML IVPB SCH ×3 (03:41→20:40)
[2020-06-01] MEDS: KETOROLAC 15 MG/ML 1 ML VIAL IVP PRN ×2 (03:41→10:01)
[2020-06-01 06:02] LABS: Glucose,Whole Blood 103 mg/dL (75-99)
[2020-06-01] MEDS: ACETAMINOPHEN IV (For NPO) 1,000 MG in EMPTY BAG 1 BAG IVPB SCH ×3 (06:05→18:02)
[2020-06-01] MEDS: PANTOPRAZOLE 40 MG TABLET PO SCH (06:41)
[2020-06-01] MEDS: DOCUSATE 100 MG CAP PO SCH ×2 (08:44→20:39)
[2020-06-01] MEDS: ZINC SULFATE 220 MG CAP PO SCH (08:44)
[2020-06-01] MEDS: LOSARTAN 50 MG TAB PO SCH (08:44)
[2020-06-01] MEDS: MULTIVITAMINS, THERA 1 EACH TAB PO SCH (08:44)
[2020-06-01] MEDS: SYMBICORT 160-4.5 MCG INHALER INHALATION SCH ×2 (08:50→21:01)
[2020-06-01 08:56] LABS: Basophils % (A) 0 %; Eosinophils # (A) 0.7 k/uL (0-0.7); Eosinophils % (A) 7 %; HCT 37.9 % (34.0-46.0); HGB 12.4 gm/dL (11.4-16.0); Lymphocytes # (A) 1.5 k/uL (1.0-4.8); Lymphocytes % (A) 16 %; MCH 30.2 pg (25.0-35.0); MCHC 32.6 g/dL (31.0-37.0); MCV 92.6 fL (80.0-100.0); Monocytes # (A) 0.6 k/uL (0-1.0); Monocytes % (A) 7 %; Neutrophils # (A) 6.5 k/uL (1.3-7.7); Neutrophils % (A) 69 %; Platelet Count 302 k/uL (150-450); RBC 4.09 m/uL (3.80-5.40); RDW 12.7 % (11.5-15.5); WBC 9.4 k/uL (3.8-10.6)
[2020-06-01] MEDS: ALBUTEROL NEBULIZED 2.5 MG/3 ML INHALATION SCH ×2 (11:53→20:59)
--- NOTE | 2020-06-01 12:03 | P.PN ---
Subjective Progress Note Date: 06/01/20 Principal diagnosis: Incisional hernia Patient feels much better today. Yesterday she had a episode of fevers. Urinalysis does not look bad. Cultures are pending. Chest x-ray showed increased atelectasis. Patient states she feels well since that episode. Pain is continuing to improve and has little pain unless she coughs at this time. White blood cell count 9.4 with no shift. No further fevers. No tachycardia. Objective - Vital Signs Vital signs: Vital Signs Temp 98 F 06/01/20 08:01 Pulse 70 06/01/20 08:01 Resp 18 06/01/20 08:01 BP 121/71 06/01/20 08:01 Pulse Ox 96 06/01/20 08:01 Intake & Output 05/31/20 06/01/20 06/01/20 18:59 06:59 18:59 Intake Total 1000 1400 Output Total 295 1520 Balance 705 -120 Intake: Oral 1000 1400 Output: Drainage 45 70 Left Abdomen 30 45 Right Abdomen 15 25 Urine 250 1450 Uretheral (Wilson) 200 Other: Voiding Method Indwelling Catheter Indwelling Catheter Toilet # Bowel Movements 1 - Exam Abdomen: Soft, nondistended, mild tenderness, and dressing clean and dry - Labs CBC & Chem 7: 06/01/20 08:43 05/31/20 08:30 Labs: Abnormal Lab Results - Last 24 Hours (Table) 05/31/20 05/31/20 05/31/20 Range/Units 12:36 18:05 18:35 POC Glucose (mg/dL) 114 H 104 H (75-99) mg/dL Urine Ketones 1+ H (Negative) Urine Blood Trace H (Negative) Ur Leukocyte Esterase Small H (Negative) Urine Mucus Rare H (None) /hpf 05/31/20 06/01/20 06/01/20 Range/Units 21:12 01:57 06:01 POC Glucose (mg/dL) 159 H 142 H 103 H (75-99) mg/dL Urine Ketones (Negative) Urine Blood (Negative) Ur Leukocyte Esterase (Negative) Urine Mucus (None) /hpf Microbiology - Last 24 Hours (Table) 05/31/20 17:45 Urine Culture - Preliminary Urine,Catheterized Assessment and Plan (1) Incisional hernia Narrative/Plan: Options reviewed. Will plan observation one more evening. Continue aggressive pulmonary toilet. Continue antibiotics empirically for now. Follow cultures. Anticipate discharge tomorrow. Possible removal of one of the 2 drains tomorrow. Current Visit: Yes Status: Acute Code(s): K43.2 - INCISIONAL HERNIA WITHOUT OBSTRUCTION OR GANGRENE SNOMED Code(s): 530434745
[2020-06-01 12:59] LABS: Glucose,Whole Blood 96 mg/dL (75-99)
[2020-06-01 17:03] LABS: Glucose,Whole Blood 94 mg/dL (75-99)
[2020-06-01] MEDS: LACTATED RINGERS 1,000 ML IV SCH (17:59)
--- NOTE | 2020-06-01 19:14 | PN ---
PROGRESS NOTE DATE OF SERVICE: 06/01/2020 I am covering for Dr. Lambert. HISTORY: This 64-year-old woman was admitted with incisional hernia repair, had some difficulty breathing last night. The chest x-ray showed significant atelectasis of the lung bases, which is increased compared to the old exam. The white count is 9.4, only. Otherwise the patient had some mild hyponatremia yesterday. UA is unremarkable. PAST MEDICAL HISTORY: History reviewed. REVIEW OF SYSTEMS: Cardiovascular system: No angina or palpitations. Respiration as mentioned earlier. GI: As mentioned earlier. : No dysuria. NERVOUS SYSTEM: No numbness or weakness. CURRENT MEDICATIONS: Reviewed and include: 1. Tylenol. 2. [place] 7.5 mg. 3. Unasyn 3 g IV q.6h. 4. Symbicort. 5. Colace. 6. Heparin. 7. Dilaudid. 8. NovoLog. 9. Toradol. 10.Cozaar. 11.Melatonin. 12.Singulair. 13.Narcan. 14.Zofran. 15.Doses reviewed. PHYSICAL EXAM: Patient is alert, oriented x3. Pulse 70, blood pressure 121/71, respirations 18, temperature 98 degrees, pulse ox 98% on room air. HEENT is conjunctivae normal. NECK: No JVD. CARDIOVASCULAR: S1, S2 muffled. RESPIRATIONS: Breath sounds diminished in the bases. A few rhonchi. No crackles. ABDOMEN: Soft. Status post surgery. LEGS are no edema. No swelling. NERVOUS SYSTEM: No focal deficits. LABORATORY DATA: CBC within normal limits otherwise sodium 134. ASSESSMENT: 1. Incarcerated incisional hernia with mesh. 2. Moderate persistent asthma with possible acute exacerbation. 3. Diabetes mellitus type 2. 4. Gastroesophageal reflux disease. 5. Atelectasis, rule out tracheobronchitis. 6. Hyperlipidemia. 7. Hypertension. 8. History of splenectomy. 9. History of urinary stress incontinence. 10.History of restless legs syndrome. 11.Increased WBC. 12.Hyponatremia. RECOMMENDATIONS AND DISCUSSION: Recommend to continue current medications, management and symptomatic treatment. Add bronchodilators. Continue with empiric antibiotics. Also recommend D-dimer. If it is positive, a CT angio also to rule out the possibility of pulmonary embolism. Otherwise, incentive spirometry, DVT prophylaxis. The rest of the medications per Surgery. Further recommendations to follow. MMODL / IJN: [id number] /
--- NOTE | 2020-06-01 20:37 | CT ---
EXAMINATION TYPE: CT chest angio for PE DATE OF EXAM: 06/01/2020 COMPARISON: 12/09/2016 HISTORY: elevated ddimer CT DLP: 382.4 mGycm Automated exposure control for dose reduction was used. CONTRAST: Performed with IV Contrast, patient injected with 100 mL of Isovue 370. There are 3-D post processed images. There is some atelectasis right posterior lung base. There is lipoma of the pleura in the posterior r ight lower lobe. This measures 5 x 3 cm. There is some mild atelectasis left posterior lung base. There is normal contrast opacification of the pulmonary arteries. There are no filling defects. There is no mediastinal adenopathy. Heart size is normal. There is no pericardial effusion. There is small hiatal hernia. There are some air bubbles in the soft tissues over the anterior upper abdomen consis tent with recent surgery. There are skin lilia. Bony thorax is intact. Heart size is normal. There is no pericardial effusion. IMPRESSION: No evidence of pulmonary embolism. There is lipoma of the pleura in the right lower lobe. There is in creased atelectasis at the lung bases compared to old exam. Lipoma increased compared to old exam.
[2020-06-01] MEDS: ATORVASTATIN 10 MG TAB PO SCH (20:38)
[2020-06-01] MEDS: MELATONIN 3 MG TABLET PO SCH (20:39)
[2020-06-01] MEDS: MONTELUKAST 10 MG TAB PO SCH (20:39)
[2020-06-01] MEDS: PATIENT'S OWN (Mirabegron [Myrbetriq] 50 MG Tab.Er.24h) PO SCH (20:39)
[2020-06-01] MEDS: SOLIFENACIN SUCCINATE 10 MG PO SCH (20:39)
[2020-06-01 20:58] LABS: Glucose,Whole Blood 108 mg/dL (75-99)
[2020-06-02 02:00] LABS: Glucose,Whole Blood 116 mg/dL (75-99)
[2020-06-02] MEDS: INSULIN ASPART (NovoLOG) 100 UNIT/ML VIAL SQ SCH ×5 (02:23→21:01)
[2020-06-02] MEDS: HEPARIN SODIUM,PORCINE 5,000 UNIT/ML 1 ML VIAL SQ SCH ×3 (04:02→20:37)
[2020-06-02] MEDS: AMPICILLIN-SULBACTAM 3 GM in SODIUM CHLORIDE 0.9% 100 ML IVPB SCH ×3 (04:03→20:21)
[2020-06-02] MEDS: LACTATED RINGERS 1,000 ML IV SCH (06:49)
[2020-06-02] MEDS: PANTOPRAZOLE 40 MG TABLET PO SCH (06:50)
[2020-06-02 06:54] LABS: Glucose,Whole Blood 120 mg/dL (75-99)
[2020-06-02] MEDS: SYMBICORT 160-4.5 MCG INHALER INHALATION SCH ×2 (08:58→19:30)
[2020-06-02] MEDS: ALBUTEROL NEBULIZED 2.5 MG/3 ML INHALATION SCH ×3 (09:00→19:33)
[2020-06-02] MEDS ORDERED: FUROSEMIDE 10 MG/ML 2 ML VIAL IV STA (11:19)
--- NOTE | 2020-06-02 11:29 | XR ---
EXAMINATION TYPE: XR chest 1V portable DATE OF EXAM: 06/02/2020 COMPARISON: 05/31/2020 INDICATION: Atelectasis TECHNIQUE: Single frontal view of the chest is obtained. FINDINGS: The heart size is normal. The pulmonary vasculature is normal. Streak opacities in the left midlung likely related to atelectasis. This is slightly more distinct cu rrently than previous may be resolving. Some mild plate atelectasis or minimal fluid within the right minor fissure may be developing . IMPRESSION: 1. Improved appearance of the streak opacity within the left lung. Streak atelectasis remains most li manuel within the differential. 2. Some minimal fluid or atelectasis along the minor fissure on the right may be developing.
--- NOTE | 2020-06-02 11:37 | US ---
EXAMINATION TYPE: US venous doppler duplex LE DATE OF EXAM: 06/02/2020 11:30 AM COMPARISON: CLINICAL HISTORY: swelling to leg unequal to the left. . swelling. No redness. SIDE PERFORMED: Bilateral TECHNIQUE: The lower extremity deep venous system is examined utilizing real time linear array sonog priti with graded compression, doppler sonography and color-flow sonography. VESSELS IMAGED: External Iliac Vein (EIV) Common Femoral Vein Deep Femoral Vein Greater Saphenous Vein * Femoral Vein Popliteal Vein Small Saphenous Vein * Proximal Calf Veins (* superficial vessels) Right Leg: Negative for DVT Left Leg: Negative for DVT IMPRESSION: 1. Bilateral lower extremity ultrasound negative for deep venous thrombosis.
--- NOTE | 2020-06-02 12:02 | P.PN ---
<Precious Vásquez - Last Filed: 06/02/20 11:54> Subjective Progress Note Date: 06/02/20 CHIEF COMPLAINT: Incarcerated recurrent incisional hernia HISTORY OF PRESENT ILLNESS: The patient is status post incarcerated incisional hernia repair with mesh and removal of prosthetic mesh. Patient is reporting that her pain is controlled. She did have elevated d-dimer yesterday and had a CTA of the chest completed which was negative for PE. Did show lipoma of the pleura in the right lower lobe. There is increased atelectasis at the lung bases. Chest x-ray shows improved appearance of streak opacity within the left lung. Likely due to his atelectasis. Some minimal fluid or atelectasis along the minor fissure on the right may be developing. Discussed case with Dr. Maldonado. He has discontinued IV fluids and has added a dose of IV Lasix for fluid overload. He also recommends Augmentin for 3 more days and albuterol inhaler for possible underlying pneumonia. Patient does report bowel movements. Her stools are soft. No longer having diarrhea. She is afebrile. Her drain on the left had 25 mL out and on the right 15 mL. Patient did have some swelling in the right lower extremity. No pain with palpation of the calf. Bilateral venous Doppler of legs negative for DVT PHYSICAL EXAM: VITAL SIGNS: Reviewed. GENERAL: Well-developed in no acute distress. HEENT: No sclera icterus. Extraocular movements grossly intact. Moist buccal mucosa. Head is atraumatic, normocephalic. ABDOMEN: Soft. Mildly distended. Incision site clean dry and intact. Patient has abdominal binder in place. NEUROLOGIC: Alert and oriented. Cranial nerves II through XII grossly intact. ASSESSMENT: 1. Incarcerated incisional hernia repair with mesh and prosthetic mesh removal. PLAN: -Antibiotics per medicine recommendations -Continue the [place] as needed for pain -Encourage incentive spirometer use -Encouraged ambulating -Anticipate discharge home tomorrow -Possible removal of one drain tomorrow prior to discharge Physician Boring Machine Set Up Operator note has been reviewed by physician. Signing provider agrees with the documented findings, assessment, and plan of care. Objective - Vital Signs Vital signs: Vital Signs Temp 97.9 F 06/02/20 02:12 Pulse 73 06/02/20 02:12 Resp 18 06/02/20 04:55 BP 168/91 06/02/20 02:12 Pulse Ox 95 06/02/20 02:12 Intake & Output 06/01/20 06/02/20 06/02/20 18:59 06:59 18:59 Intake Total 500 Output Total 924 62 Balance -924 438 Intake: Oral 500 Output: Drainage 74 62 Left Abdomen 57 40 Right Abdomen 17 22 Urine 850 Other: Voiding Method Toilet Toilet # Voids 1 2 # Bowel Movements 1 2 - Labs CBC & Chem 7: 06/01/20 08:43 05/31/20 08:30 Labs: Abnormal Lab Results - Last 24 Hours (Table) 06/01/20 06/01/20 06/02/20 Range/Units 16:59 20:57 02:00 D-Dimer 1.24 H (<0.60) mg/L FEU POC Glucose (mg/dL) 108 H 116 H (75-99) mg/dL 06/02/20 Range/Units 06:48 D-Dimer (<0.60) mg/L FEU POC Glucose (mg/dL) 120 H (75-99) mg/dL Microbiology - Last 24 Hours (Table) 05/31/20 18:52 Blood Culture - Preliminary Blood No Growth after 24 hours 05/31/20 17:45 Urine Culture - Final Urine,Catheterized <Kraig Iqbal - Last Filed: 06/02/20 15:39> Subjective As above. Venous Dopplers negative for DVT. Apparently medical service was to continue antibiotics for possible pneumonia. Patient otherwise doing well. We'll anticipate discharge tomorrow. Objective - Vital Signs Vital signs: Vital Signs Temp 98.8 F 06/02/20 12:27 Pulse 81 06/02/20 12:27 Resp 14 06/02/20 12:27 BP 147/83 06/02/20 12:27 Pulse Ox 92 L 06/02/20 12:27 Intake & Output 06/01/20 06/02/20 06/02/20 18:59 06:59 18:59 Intake Total 500 Output Total 924 62 33 Balance -924 438 -33 Intake: Oral 500 Output: Drainage 74 62 33 Left Abdomen 57 40 15 Right Abdomen 17 22 18 Urine 850 Other: Voiding Method Toilet Toilet # Voids 1 2 1 # Bowel Movements 1 2 - Labs CBC & Chem 7: 06/01/20 08:43 05/31/20 08:30 Labs: Abnormal Lab Results - Last 24 Hours (Table) 06/01/20 06/01/20 06/02/20 Range/Units 16:59 20:57 02:00 D-Dimer 1.24 H (<0.60) mg/L FEU POC Glucose (mg/dL) 108 H 116 H (75-99) mg/dL 06/02/20 06/02/20 Range/Units 06:48 12:58 D-Dimer (<0.60) mg/L FEU POC Glucose (mg/dL) 120 H 119 H (75-99) mg/dL Microbiology - Last 24 Hours (Table) 05/31/20 18:52 Blood Culture - Preliminary Blood No Growth after 24 hours 05/31/20 17:45 Urine Culture - Final Urine,Catheterized Assessment and Plan (1) Incisional hernia Current Visit: Yes Status: Acute Code(s): K43.2 - INCISIONAL HERNIA WITHOUT OBSTRUCTION OR GANGRENE SNOMED Code(s): 384009475
[2020-06-02 13:00] LABS: Glucose,Whole Blood 119 mg/dL (75-99)
[2020-06-02] MEDS: DOCUSATE 100 MG CAP PO SCH ×2 (13:20→20:25)
[2020-06-02] MEDS: MULTIVITAMINS, THERA 1 EACH TAB PO SCH (13:21)
[2020-06-02] MEDS: ZINC SULFATE 220 MG CAP PO SCH (13:21)
[2020-06-02] MEDS: LOSARTAN 50 MG TAB PO SCH (13:21)
[2020-06-02] MEDS: HYDROcodone/APAP 7.5-325MG 1 EACH TAB PO PRN (16:59)
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
[2020-06-02 17:54] LABS: Glucose,Whole Blood 124 mg/dL (75-99)
[2020-06-02] MEDS: PATIENT'S OWN (Mirabegron [Myrbetriq] 50 MG Tab.Er.24h) PO SCH (20:23)
[2020-06-02] MEDS: SOLIFENACIN SUCCINATE 10 MG PO SCH (20:24)
[2020-06-02] MEDS: MELATONIN 3 MG TABLET PO SCH (20:25)
[2020-06-02] MEDS: MONTELUKAST 10 MG TAB PO SCH (20:25)
[2020-06-02] MEDS: ATORVASTATIN 10 MG TAB PO SCH (20:26)
[2020-06-02 20:30] LABS: Glucose,Whole Blood 208 mg/dL (75-99)
[2020-06-03 02:16] LABS: Glucose,Whole Blood 105 mg/dL (75-99)
[2020-06-03] MEDS: INSULIN ASPART (NovoLOG) 100 UNIT/ML VIAL SQ SCH ×4 (02:51→17:44)
[2020-06-03] MEDS: AMPICILLIN-SULBACTAM 3 GM in SODIUM CHLORIDE 0.9% 100 ML IVPB SCH ×2 (04:12→12:45)
[2020-06-03] MEDS: HEPARIN SODIUM,PORCINE 5,000 UNIT/ML 1 ML VIAL SQ SCH ×2 (04:12→12:47)
[2020-06-03 06:47] LABS: Glucose,Whole Blood 106 mg/dL (75-99)
[2020-06-03] MEDS: PANTOPRAZOLE 40 MG TABLET PO SCH (06:47)
[2020-06-03] MEDS: ALBUTEROL NEBULIZED 2.5 MG/3 ML INHALATION SCH ×2 (08:51→12:51)
[2020-06-03] MEDS: SYMBICORT 160-4.5 MCG INHALER INHALATION SCH (08:51)
[2020-06-03] MEDS: ZINC SULFATE 220 MG CAP PO SCH (08:57)
[2020-06-03] MEDS: LOSARTAN 50 MG TAB PO SCH (08:58)
[2020-06-03] MEDS: MULTIVITAMINS, THERA 1 EACH TAB PO SCH (08:58)
[2020-06-03] MEDS: DOCUSATE 100 MG CAP PO SCH (08:58)
--- NOTE | 2020-06-03 08:59 | XR ---
EXAMINATION TYPE: XR chest 1V portable DATE OF EXAM: 06/03/2020 COMPARISON: 06/02/2020 HISTORY: Abnormal x-ray TECHNIQUE: Single frontal view of the chest is obtained. FINDINGS: Bilateral areas of consolidation are stable with persistent elevation the right hemidiaphr agm. Heart size normal. No overt failure. No pneumothorax. Atherosclerotic change aorta. IMPRESSION: 1. Stable bilateral areas of consolidation may been the basis of atelectasis or infiltrate correlate clinically.
[2020-06-03] MEDS: HYDROcodone/APAP 7.5-325MG 1 EACH TAB PO PRN (09:42)
[2020-06-03 10:12] LABS: Basophils # (A) 0.1 k/uL (0-0.2); Basophils % (A) 1 %; Eosinophils # (A) 0.8 k/uL (0-0.7); Eosinophils % (A) 9 %; HCT 44.1 % (34.0-46.0); HGB 13.7 gm/dL (11.4-16.0); Lymphocytes # (A) 1.8 k/uL (1.0-4.8); Lymphocytes % (A) 20 %; MCH 29.2 pg (25.0-35.0); MCHC 31.2 g/dL (31.0-37.0); MCV 93.7 fL (80.0-100.0); Mean Platelet Volume 7.3; Monocytes # (A) 0.5 k/uL (0-1.0); Monocytes % (A) 6 %; Neutrophils # (A) 5.7 k/uL (1.3-7.7); Neutrophils % (A) 64 %; Platelet Count 402 k/uL (150-450); WBC 8.9 k/uL (3.8-10.6)
[2020-06-03 10:30] LABS: African American GFR (CKD) >90 (>60 ml/min/1.73 sqM); Anion Gap 11 mmol/L; Blood Urea Nitrogen 14 mg/dL (7-17); Calcium 9.3 mg/dL (8.4-10.2); Carbon Dioxide 24 mmol/L (22-30); Chloride 100 mmol/L (98-107); Glucose 114 mg/dL (74-99); Non-African American GFR(CKD) >90 (>60 ml/min/1.73 sqM); Sodium 135 mmol/L (137-145)
[2020-06-03 12:52] LABS: Glucose,Whole Blood 110 mg/dL (75-99)
[2020-06-03 13:30] VITALS: BP 136/80; PULSE 67; RESP 16; TEMP 98
[2020-06-03] MEDS: PANTOPRAZOLE 40 MG/10 ML VIAL IV SCH (13:32)
[2020-06-03] MEDS: LACTATED RINGERS 1,000 ML IV SCH (13:33)
--- NOTE | 2020-06-03 14:45 | P.DS ---
<Precious Vásquez - Last Filed: 06/03/20 14:38> Providers Expected date of discharge: 06/03/20 Hospital Course: Discharge diagnosis 1. Incarcerated incisional hernia repair with mesh and prosthetic mesh removal. 2. Possible pneumonia 3. Atelectasis Hospital course 64-year-old female with known incisional hernia. He has been more symptomatic recently. Patient with history of previous incisional hernia repair 20 years ago. She was unsure whether mesh was utilized. CAT scan done recently showed a large hernia containing colon and a smaller hernia superior to that. Both hernias supraumbilical. Fascial defect of the larger hernia approximate 4 cm. No mesh seen with certainty. During the recent hospital stay the hernia was partially reducible and the patient's pain improved. She was discharged home with plans for elective repair. Patient had surgery completed on 05/29/2024 Incarcerated incisional hernia repair with mesh and prosthetic mesh removal. Patient reports that her pain is controlled. She denies any nausea or vomiting. She reports having bowel movements. She is tolerating regular diet. She's afebrile. White count normal at 8.9. She was also seen by medicine service and will continue Augmentin for 3 more days for possible pneumonia. She also had elevated d-dimer during this admission CT of the chest was negative for PE also venous Dopplers completed which were negative for DVTs. Patient is stable for discharge. Physician Mail Officer note has been reviewed by physician. Signing provider agrees with the documented findings, assessment, and plan of care. Patient Condition at Discharge: Stable Plan - Discharge Summary Discharge Rx Participant: Yes New Discharge Prescriptions: New Docusate [Colace] 100 mg PO BID #30 capsule HYDROcodone/APAP 7.5-325MG [[place] 7.5-325] 1 tab PO Q6HR PRN 3 Days #12 tab PRN Reason: Pain Amoxicillin/Potassium Clav [Augmentin 875-125 Tablet] 1 tab PO Q12HR 3 Days #6 tab Continue Losartan Potassium 50 mg PO QAM Zinc 50 mg PO DAILY Multivitamin with Iron [Multivitamins with Iron] 1 tab PO DAILY Lovastatin [Mevacor] 10 mg PO HS Mirabegron [Myrbetriq] 50 mg PO HS Solifenacin Succinate [Vesicare] 10 mg PO HS Pantoprazole Sodium [Protonix] 40 mg PO DAILY metFORMIN HCL ER [Glucophage Xr] 500 mg PO HS Budesonide/Formoterol Fumarate [Symbicort 160-4.5 Mcg Inhaler] 2 puff INHALATION RT-BID Montelukast [Singulair] 10 mg PO HS rOPINIRole HCL [Requip] 1 mg PO HS Ubidecarenone [Co Q-10] 400 mg PO DAILY Melatonin 3 mg PO HS Calcium 600mg - Vitamin B (Unknown Strength) 1 tab PO HS Vitamin D 3 (Unknown Dose) 1 tab PO DAILY Changed Albuterol Sulfate [Proair Hfa] 2 puff INHALATION QID #0 Discharge Medication List Losartan Potassium 50 mg PO QAM 07/12/18 [History] Lovastatin [Mevacor] 10 mg PO HS 07/12/18 [History] Multivitamin with Iron [Multivitamins with Iron] 1 tab PO DAILY 07/12/18 [History] Zinc 50 mg PO DAILY 07/12/18 [History] Mirabegron [Myrbetriq] 50 mg PO HS 12/26/18 [History] Pantoprazole Sodium [Protonix] 40 mg PO DAILY 12/26/18 [History] Solifenacin Succinate [Vesicare] 10 mg PO HS 12/26/18 [History] Budesonide/Formoterol Fumarate [Symbicort 160-4.5 Mcg Inhaler] 2 puff INHALATION RT-BID 10/31/19 [History] Montelukast [Singulair] 10 mg PO HS 10/31/19 [History] Ubidecarenone [Co Q-10] 400 mg PO DAILY 10/31/19 [History] metFORMIN HCL ER [Glucophage Xr] 500 mg PO HS 10/31/19 [History] rOPINIRole HCL [Requip] 1 mg PO HS 10/31/19 [History] Calcium 600mg - Vitamin B (Unknown Strength) 1 tab PO HS 05/12/20 [History] Melatonin 3 mg PO HS 05/12/20 [History] Vitamin D 3 (Unknown Dose) 1 tab PO DAILY 05/27/20 [History] Albuterol Sulfate [Proair Hfa] 2 puff INHALATION QID #0 06/03/20 [Rx] Amoxicillin/Potassium Clav [Augmentin 875-125 Tablet] 1 tab PO Q12HR 3 Days #6 tab 06/03/20 [Rx] Docusate [Colace] 100 mg PO BID #30 capsule 06/03/20 [Rx] HYDROcodone/APAP 7.5-325MG [[place] 7.5-325] 1 tab PO Q6HR PRN 3 Days #12 tab 06/03/20 [Rx] Follow up Appointment(s)/Referral(s): Kraig Iqbal MD [Medical Doctor] - 06/05/20 9:40 am Activity/Diet/Wound Care/Special Instructions: Regular carbohydrate consistent No driving while taking [place] No lifting over 10 pounds Very light activity until you are reevaluated at your follow up appointment with your surgeon Record drainage from STACY drains daily and bring to office appointment Recheck as scheduled, sooner if problems or concerns ie..fever, chills, worsening pain, inability to tolerate fluids/food. Worsening lower leg swelling or pain. Worsening breathing difficulties. Discharge Disposition: HOME SELF-CARE <Kraig Iqbal - Last Filed: 06/03/20 17:23> Providers Date of admission: 05/29/20 14:50 Attending physician: Kraig Iqbal Consults: 05/29/20 15:08 Consult Physician Routine Consulting Provider: Beka Lambert Consult Reason/Comments: med mgmt Do you want consulting provider notified?: Yes Primary care physician: Dario Andujar - Jina Diagnosis(es) (1) Incisional hernia Current Visit: Yes Status: Acute Hospital Course: As above. Patient doing much better today. May discharge. Follow-up in the office later this week or next week. Patient will contact me with drain output.
--- NOTE | 2020-06-03 15:05 | PN ---
PROGRESS NOTE DATE OF SERVICE: 06/03/2020 I am covering for Dr. Lambert. This is a 64-year-old woman who was admitted with incisional hernia repair, also had atelectasis and asthma exacerbation, also treated with bronchodilators and improved significantly. Patient also given empiric antibiotics. Most recent chest x-ray showed some atelectasis. No chest pain. No palpitations. Surgery is planning for discharge. PHYSICAL EXAMINATION: Alert and oriented x2. Pulse 67, blood pressure 136/80, respiration 16, temperature 98 degrees, pulse ox 94% on room air. HEENT: Conjunctivae normal. NECK: No jugular venous distension. CARDIOVASCULAR: S1, S2, muffled. RESPIRATION: Breath sounds diminished at the bases, a few scattered rhonchi. ABDOMEN: Soft, status post surgery. LEGS: No edema. No swelling. NERVOUS SYSTEM: No focal deficits. LABS: CBC within normal, sodium 135. ASSESSMENT: 1. Incisional hernia repair with mesh. 2. Moderate persistent asthma with possible acute exacerbation. 3. Minimal fluid overload, improved. 4. Possible atelectasis. 5. Diabetes mellitus type 2. 6. GERD. 7. Hyperlipidemia. 8. Hypertension. 9. History of splenectomy. 10.History of urinary stress incontinence. 11.History of restless legs syndrome. 12.Increased WBC. 13.Hyponatremia. RECOMMENDATION: Recommend to continue current medication, continue to monitor and symptomatic treatment. Otherwise, at this time I would recommend a short course of p.o. antibiotics, Augmentin for 5 days and albuterol and continue to follow with primary physician in the outpatient setting. Otherwise, rest of the recommendations per Orthopedic Surgery. Further recommendations to follow. MMODL / IJN: [id number] /
--- NOTE | 2020-06-05 08:03 | CDI ---
Documentation Clarification Form Date: 06/05/20 From: Janett Fall CCS Phone: If you have a question about this query, please contact Carin Brady, Cafe Worker at [phone] between 8am and 5pm. Admit Date: 05/29/20 Discharge Date:06/03/20 Patient Name: Tiffany Felder Visit Number: [id number] ATTENTION: The Clinical Documentation Specialists (CDI) and [facility] Coding Staff appreciate your assistance in clarifying documentation. Please respond to the clarification below the line at the bottom and electronically sign. The CDI & [facility] Coding staff will review the response and follow-up if needed. Please note: Queries are made part of the Legal Health Record. If you have any questions, please contact the author of this message via ITS. Dear Dr. Iqbal, Pneumonia was documented in your notes on PN 06/02, DS. Some minimal fluid or atelectasis along the minor fissure on the right may be developing.Discussed case with Dr. Maldonado.He has discontinued IV fluids and has added a dose of IV Lasix for fluid overload.He also recommends Augmentin for 3 more days and albuterol inhaler for possible underlying pneumonia. History/Risk Factors: Asthma, DM, HTN, Post Op status Clinical Indicators: Difficulty breathing, Breath sounds diminished in the bases. Atelectasis Vital signs: BP 121/71, RR 18, IL 70, Temp 98 O2 Sat 98 X-ray: Stable bilateral areas of consolidation may been the basis of atelectasis or infiltrate correlate clinically. Treatment: Unasyn 3 gm IVPB, Home on Augmentin 875-125 tablet 1 PO Q12HR Breathing Tx: Hand nebulizer, O2 nasal cannula 2 lpm In order to capture the severity of condition, please clarify if the condition signifies and you are treating for: Aspiration Pneumonia, identify if: Due to solids or liquids Due to anesthesia Bacterial Pneumonia, specify causal organism (if known) Gram Negative Pneumonia Due to Strep Due to Staph Due to E. Coli Other bacteria (please specify) Viral Pneumonia, specify casual organism (if known) Healthcare Acquired Pneumonia/Pneumonia, unspecified Other, please specify Unable to determine Patient had atelectasis. No proven pneumonia. MTDD
== END 2020-06-03 17:55 | disposition home or self-care (01) | DRG 354 ==
LOC: OR 10:50 → 6PED 14:50
PROVIDERS: ADMIT Surgery; ATTEND Surgery
PROC: 0WPF0JZ Removal of Synthetic Substitute from Abdominal Wall, Open Approach (ICD-10-PCS; 2020-05-29)
PROC: 0WUF0JZ Supplement Abdominal Wall with Synthetic Substitute, Open Approach (ICD-10-PCS; principal; 2020-05-29 12:30)
DX: K43.0 Incisional hernia with obstruction, without gangrene (principal); J45.41 Moderate persistent asthma with (acute) exacerbation; E87.1 Hypo-osmolality and hyponatremia; J98.11 Atelectasis; E11.9 Type 2 diabetes mellitus without complications; Z89.421 Acquired absence of other right toe(s); K59.09 Other constipation; K21.9 Gastro-esophageal reflux disease without esophagitis; I10 Essential (primary) hypertension; E78.5 Hyperlipidemia, unspecified; G25.81 Restless legs syndrome; N39.3 Stress incontinence (female) (male); R79.89 Other specified abnormal findings of blood chemistry; E87.70 Fluid overload, unspecified; Z79.899 Other long term (current) drug therapy; Z79.51 Long term (current) use of inhaled steroids; Z79.84 Long term (current) use of oral hypoglycemic drugs; Z90.81 Acquired absence of spleen; Z86.14 Personal history of Methicillin resistant Staphylococcus aureus infection; Z90.710 Acquired absence of both cervix and uterus; Z98.891 History of uterine scar from previous surgery; Z98.890 Other specified postprocedural states; Z87.81 Personal history of (healed) traumatic fracture; Z96.652 Presence of left artificial knee joint; Z86.61 Personal history of infections of the central nervous system; Z88.5 Allergy status to narcotic agent; Z80.9 Family history of malignant neoplasm, unspecified; Z82.0 Family history of epilepsy and other diseases of the nervous system
CPT/HCPCS: 71045; 71046; 71275; 80048; 81001; 83605; 83880; 84484; 85025; 85379; 87040; 87086; 87324; 88302; 93970; 94640; 94760

== ENCOUNTER 2020-12-02 07:27 | Day surgery (SDC) | payer MEDICARE ==
[2020-11-26 12:55] VITALS: BMI 32.9
[~2020-12-02 07:27] MED LIST changes: -ACETAMINOPHEN TAB 500 MG TAB PO ONE; -DEXAMETHASONE SOD PHOSPHATE 10 MG/ML 1 ML VIAL IV ONE; -HEPARIN SODIUM,PORCINE 5,000 UNIT/ML 1 ML VIAL SQ ONE; +LACTATED RINGERS 1,000 ML IV SCH; -LIDOCAINE 1% (10MG/ML) FOR IV START INTRADERMA PRN; -ONDANSETRON 4 MG/2 ML VIAL IVP ONE; -ONDANSETRON 4 MG/2 ML VIAL IVP PRN
[2020-12-02 08:09] LABS: Glucose,Whole Blood 117 mg/dL (75-99)
[2020-12-02] MEDS ORDERED: PROPOFOL 10 MG/ML 20 ML VIAL IV ONE (08:13)
[2020-12-02 08:15] VITALS: TEMP 98.1
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
--- NOTE | 2020-12-02 08:39 | P.PCN ---
Date of Procedure: 12/02/20 Procedure(s) Performed: PREOPERATIVE DIAGNOSIS: Colon cancer screening POSTOPERATIVE DIAGNOSIS: Mild diverticulosis, slightly suboptimal prep PROCEDURE: Colonoscopy ANESTHESIA: MAC SURGEON: Kraig Iqbal M.D. SPECIMENS: None ENDOSCOPIC PROCEDURE: The patient was placed on the endoscopy table in the left decubitus position. The Olympus colonoscope was inserted into the anus and passed under direct visualization to the region of the cecum. I could not see the base of the cecum well because of retained stool and tortuosity. The patient had residual stool scattered throughout the colon as well. Visualization was somewhat limited. The scope was slowly withdrawn inspecting all surfaces carefully. There were no neoplastic inflammatory or polypoid lesions throughout the cecum, ascending, transverse, descending, sigmoid and rectum. There was mild left-sided diverticulosis noted. Digital rectal examination was normal. The patient was taken to the recovery room in stable condition per anesthesia guidelines. RECOMMENDATIONS: Resume diet. Follow-up colonoscopy 10 years.
[2020-12-02 08:56] VITALS: BP 131/82; PULSE 80; RESP 20
== END 2020-12-02 09:11 | disposition home or self-care (01) ==
LOC: ORWHC2ENDO 07:27
PROVIDERS: ATTEND Surgery
DX: Z12.11 Encounter for screening for malignant neoplasm of colon (principal); K57.30 Diverticulosis of large intestine without perforation or abscess without bleeding; Q43.8 Other specified congenital malformations of intestine; J45.909 Unspecified asthma, uncomplicated; E11.9 Type 2 diabetes mellitus without complications; K21.9 Gastro-esophageal reflux disease without esophagitis; E78.5 Hyperlipidemia, unspecified; I10 Essential (primary) hypertension; R32 Unspecified urinary incontinence; G25.81 Restless legs syndrome; E66.9 Obesity, unspecified; Z87.828 Personal history of other (healed) physical injury and trauma; Z87.81 Personal history of (healed) traumatic fracture; Z86.61 Personal history of infections of the central nervous system; Z86.14 Personal history of Methicillin resistant Staphylococcus aureus infection; Z98.890 Other specified postprocedural states; Z90.710 Acquired absence of both cervix and uterus; Z90.89 Acquired absence of other organs; Z90.81 Acquired absence of spleen; Z89.421 Acquired absence of other right toe(s); Z96.652 Presence of left artificial knee joint; Z87.898 Personal history of other specified conditions; Z91.89 Other specified personal risk factors, not elsewhere classified; Z79.899 Other long term (current) drug therapy; Z79.51 Long term (current) use of inhaled steroids; Z79.84 Long term (current) use of oral hypoglycemic drugs; Z88.5 Allergy status to narcotic agent; Z68.33 Body mass index [BMI] 33.0-33.9, adult; Z80.42 Family history of malignant neoplasm of prostate; Z82.0 Family history of epilepsy and other diseases of the nervous system
CPT/HCPCS: J2704; G0121; 45378

== ENCOUNTER → 2021-01-13 | Outpatient (CLI) | payer MEDICARE ==
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
--- NOTE | 2021-01-14 12:27 | MM ---
Reason for exam: screening (asymptomatic). Last mammogram was performed 1 year and 3 months ago. History: Patient is postmenopausal. Benign ultrasound-guided core biopsy of the right breast, November 18, 2000. Core biopsy of the right breast. Took hormonal contraceptives for 12 years. Physical Findings: A clinical breast exam by your physician is recommended on an annual basis and results should be correlated with mammographic findings. MG 3D Screening Mammo W/Cad Bilateral CC and MLO view(s) were taken. XCCL view(s) were taken of the right breast. Prior study comparison: October 29, 2019, bilateral MG 3d screening mammo w/cad. December 01, 2017, bilateral MG screening mammo w CAD. No significant changes when compared with prior studies. ASSESSMENT: Benign, BI-RAD 2 RECOMMENDATION: Routine screening mammogram of both breasts in 1 year.
== END | disposition home or self-care (01) ==
LOC: RADMAMWWP 07:26
PROVIDERS: ATTEND Family Medicine
DX: Z12.31 Encounter for screening mammogram for malignant neoplasm of breast (principal); M85.89 Other specified disorders of bone density and structure, multiple sites; Z78.0 Asymptomatic menopausal state
CPT/HCPCS: 77063; 77067; 77080

== ENCOUNTER → 2022-06-03 | Outpatient (CLI) | payer MEDICARE ==
--- NOTE | 2022-06-03 12:53 | XR ---
EXAMINATION TYPE: XR sternum DATE OF EXAM: 06/03/2022 COMPARISON: None HISTORY: Sternal pain mid chest pain, fall TECHNIQUE: 2 view sternum FINDINGS: Sternal clavicular junction appear normal. No acute fractures are identified. Retrosternal space appears normal. IMPRESSION: 1. Normal sternum plain film. If additional workup is required, CT could be performed.
--- NOTE | 2022-06-03 15:54 | XR ---
EXAMINATION TYPE: XR chest 2V DATE OF EXAM: 06/03/2022 COMPARISON: Right RIBS 06/03/2022 INDICATION: Mid chest pain following fall TECHNIQUE: Frontal and lateral views of the chest are obtained. FINDINGS: The heart size is normal. The pulmonary vasculature is normal. There is mild infiltrate or opacity at the right lung base. More rounded density is present on the la teral projection. Air-fluid levels in the posterior region on the lateral projection.. IMPRESSION: 1. Posterior lung infiltrate or effusion. Follow-up chest x-ray recommended. Consider follow-up CT ch est.
--- NOTE | 2022-06-03 15:59 | XR ---
EXAMINATION TYPE: XR thoracic spine complete DATE OF EXAM: 06/03/2022 COMPARISON: None HISTORY: Mid chest pain following fall TECHNIQUE: 3 view thoracic spine FINDINGS: There are 12 thoracic type vertebral bodies. The pedicles are intact. Mild disc space narro wing is present within the mid thoracic spine. There is exaggeration of the thoracic kyphosis with co mpensatory lordosis in the lower cervical spine. No suspicious compression deformities identified. MRI can be performed if additional evaluation would be of benefit. IMPRESSION: 1. Thoracic kyphosis. 2. Mild degenerative disc changes mid thoracic spine.
--- NOTE | 2022-06-03 16:03 | XR ---
EXAMINATION TYPE: XR ribs bilateral DATE OF EXAM: 06/03/2022 COMPARISON: None HISTORY: Mid chest pain following fall TECHNIQUE: Bilateral ribs are examined in 2 projections each. FINDINGS: No displaced fractures are evident. No pneumothorax is evident in these images. Lung greenberg appear clear. Please also see chest x-ray same date IMPRESSION: 1. No acute rib fractures bilateral ribs
== END | disposition home or self-care (01) ==
LOC: RADXRMAIN 10:31
PROVIDERS: ATTEND Internal Medicine Critical Care Medicine
DX: M51.34 Other intervertebral disc degeneration, thoracic region (principal); M40.204 Unspecified kyphosis, thoracic region; R07.9 Chest pain, unspecified; Z91.81 History of falling
CPT/HCPCS: 71046; 71110; 71120; 72072

== ENCOUNTER → 2022-06-08 | Outpatient (CLI) | payer MEDICARE ==
[2022-06-08 09:40] LABS: African American GFR (CKD) >90 (>60 ml/min/1.73 sqM); Blood Urea Nitrogen 16 mg/dL (7-17); Non-African American GFR(CKD) >90 (>60 ml/min/1.73 sqM)
--- NOTE | 2022-06-08 10:57 | CT ---
EXAMINATION TYPE: CT chest w con DATE OF EXAM: 06/08/2022 COMPARISON: 06/01/2020 HISTORY: Fall with pain CT DLP: 607 mGycm Automated exposure control for dose reduction was used. TECHNIQUE: CT scan of the chest is performed with IV Contrast, patient injected with 70ml mL of Isovue 300. MIP Images are created on CT scanner and reviewed. 3D reconstructed images are created on an independent workstation and reviewed. FINDINGS: LUNGS: The lungs are grossly clear, there is no concerning parenchymal mass or nodule identified. T here is no pleural effusion or pneumothorax seen. The tracheobronchial tree is patent. Subsegmental consolidation right lung base appears to be related to compressive atelectasis from right side diaphr agmatic hernia. MEDIASTINUM: There are no greater than 1 cm hilar or mediastinal lymph nodes. No pericardial effusi on is seen. Coronary artery calcifications noted. Aorta normal caliber with mild atherosclerotic jessika nge. Small hiatal hernia is seen. OTHER: Postcholecystectomy changes noted. Hypertrophic and degenerative changes of the spine. There appears to be deformity of the sternum suggestive of a subacute fracture. Report called to referring clinician 10:41 AM 06/08/2022. IMPRESSION: 1. There is a fracture involving the sternum with mild displacement involving the upper body of the s ternum. No significant retrosternal hematoma. 2. Right-sided diaphragmatic hernia
== END | disposition home or self-care (01) ==
LOC: RADCTMAIN 08:44
PROVIDERS: ATTEND Internal Medicine Critical Care Medicine
DX: S22.20XA Unspecified fracture of sternum, initial encounter for closed fracture (principal); K44.9 Diaphragmatic hernia without obstruction or gangrene
CPT/HCPCS: 82565; 84520; 71260; Q9967

== ENCOUNTER → 2022-06-18 | Outpatient (CLI) | payer MEDICARE ==
--- NOTE | 2022-06-18 09:54 | CT ---
EXAMINATION TYPE: CT knee LT wo con DATE OF EXAM: 06/18/2022 COMPARISON: None HISTORY: 66-year-old female M25.562, Pain in left knee TECHNIQUE: Contiguous axial scanning of the left without IV contrast. Coronal and sagittal reconstruc tions performed. CT DLP: 424.40 mGycm Automated exposure control for dose reduction was used. FINDINGS: Images show left total knee arthroplasty. Both distal femoral and proximal tibial components of the p rosthesis are well-seated without prosthetic fracture. No obvious. Reticular fluid collection is seen . We note that the patella directly opposes the metal of the prosthetic trochlear component. No separat ing plastic liner is seen. On the sagittal series, extensor mechanism appears grossly intact. There is some anterior soft tissue swelling or scarring. Scattered atrophy of the distal thigh musculature. IMPRESSION: LIMITED BY PROMINENT METAL ARTIFACT. NO OBVIOUS COMPLICATION OF THE LEFT TOTAL KNEE ARTHROPLASTY. HOW EVER, WE DO NOTE THAT THE PATELLAR BONE DIRECTLY CONTACTS THE METAL OF THE PROSTHETIC TROCHLEAR COMPO NENT. WAS THERE SUPPOSED TO BE A RETROPATELLAR FACET COMPONENT OR PLASTIC LINER HERE?
== END | disposition home or self-care (01) ==
LOC: RADCTMAIN 07:59
PROVIDERS: ATTEND Orthopaedic Surgery
DX: M25.562 Pain in left knee (principal)

== ENCOUNTER → 2022-08-19 | Outpatient (CLI) | payer MEDICARE ==
--- NOTE | 2022-08-19 11:31 | FL ---
Exam Date: 08/19/2022 11:16 AM. Modified barium swallow for dysphagia. Consistencies administered: Various consistency of barium. Fluoro time: 53 seconds No images were sent to PACS. Please see speech pathology report.
== END | disposition home or self-care (01) ==
LOC: RADFLMAIN 10:12
PROVIDERS: ATTEND Internal Medicine Critical Care Medicine
DX: R13.10 Dysphagia, unspecified (principal)
CPT/HCPCS: 74230

== ENCOUNTER → 2024-08-23 | Outpatient (CLI) | payer MEDICARE ==
--- NOTE | 2024-08-24 12:07 | MM ---
Reason for Exam: Screening (asymptomatic). Last mammogram was performed 1 year(s) and 3 month(s) ago. Patient History: Menarche at age 7. First Full-Term at age 23. Left ovary removed at age 61. Right ovary removed at age 61. Hysterectomy at age 61. Postmenopausal. Patient has history of breast feeding. Patient used Hormonal Contraceptives for 12 years. Core Biopsy on the Right side. 11/18/2000, Benign Ultrasound-Guided Core Biopsy on the right side. Risk Values: Alondra 5 year model risk: 3.2%. NCI Lifetime model risk: 9.1%. Prior Study Comparison: 10/29/2019 Bilateral Screening Mammogram, [facility]. 01/13/2021 Bilateral Screening Mammogram, [facility]. 05/18/2023 Bilateral MG 3D screening mammo w/cad, [facility]. Tissue Density: The breasts are almost entirely fatty. Findings: Analyzed By CAD. There is no suspicious group of microcalcifications or new suspicious mass in either breast. Overall Assessment: Negative, BI-RAD 1 Management: Screening Mammogram of both breasts in 1 year. . Patient should continue monthly self-breast exams. A clinical breast exam by your physician is recommended on an annual basis. This exam should not preclude additional follow-up of suspicious palpable abnormalities. Note on Alondra scores and lifetime risk: 1. A Alondra score greater than 3% is considered moderate risk. If this is the case, consider specialist referral to assess eligibility for a risk reducing agent. 2. If overall lifetime risk for the development of breast cancer is 20% or higher, the patient may qualify for future screening with alternating mammogram and breast MRI. [facility], , 08/24/2024 12:04 PM. Electronically signed and approved by: Jacob Murguia M.D. Radiologis
== END | disposition home or self-care (01) ==
LOC: RADMAMWWP 11:24
PROVIDERS: ATTEND Family Medicine
DX: Z12.31 Encounter for screening mammogram for malignant neoplasm of breast (principal); Z78.0 Asymptomatic menopausal state; Z90.722 Acquired absence of ovaries, bilateral; Z92.0 Personal history of contraception
CPT/HCPCS: 77063; 77067

== ENCOUNTER 2025-02-25 14:20 | Emergency (ER) | payer MEDICARE ==
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
[2025-02-25] MEDS: DIPH,PERTUS(ACELL)TETVAC-LF 0.5 ML VIAL IM ONE (14:50)
[2025-02-25] MEDS: TOPICAL SKIN ADHESIVE 1 EACH AMP TOPICAL ONE (14:51)
--- NOTE | 2025-02-25 15:42 | XR ---
EXAMINATION TYPE: XR hand complete LT DATE OF EXAM: 02/25/2025 3:09 PM COMPARISON: None. CLINICAL INDICATION: Female, 69 years old with history of fall, pain, pain TECHNIQUE: 3 view(s) obtained. FINDINGS: No acute fracture or dislocation evident. There is some degenerative joint change present within the distal interphalangeal joint spaces. Mild narrowing of the proximal interphalangeal joint spaces and metacarpophalangeal joint spaces is present. May be an old avulsion at the base of the middle digit proximal phalanx no acute fracture identified. There may be some mild soft tissue swelling of the distal forearm. Follow up exams can be performed 7-10 days from acute trauma for continued pain IMPRESSION: 1. No acute osseous abnormality left hand. [facility], , 02/25/2025 3:39 PM
[2025-02-25 16:10] VITALS: BP 138/75; PULSE 65; RESP 20; TEMP 98.1
== END 2025-02-25 16:46 | disposition home or self-care (01) ==
LOC: EC 14:20
DX: S01.511A Laceration without foreign body of lip, initial encounter (principal); Z88.5 Allergy status to narcotic agent; Z23 Encounter for immunization; W01.0XXA Fall on same level from slipping, tripping and stumbling without subsequent striking against object, initial encounter
CPT/HCPCS: 90471; 90715; 99283